=== PATIENT | female | born 1945 | race Caucasian/White ===

== ENCOUNTER 2021-03-25 20:35 | Inpatient (IN) | payer MEDICARE, SELFPAY ==
--- NOTE | ~2021-03-25 | CT_ITS ---
EXAMINATION: CT HEAD WITHOUT CONTRAST CLINICAL INFORMATION: Fall. COMPARISON: None TECHNIQUE: Contiguous axial imaging was performed from the skull base to vertex without intravenous administration of contrast. This CT examination was performed using dose optimization techniques as appropriate, variously including the following: *Automated exposure control *Adjustment of mA and/or kV according to patient size (this includes techniques or standardized protocols for targeted exams where dose is matched to indication/reason for exam; i.e. extremities or head) *Use of iterative reconstruction technique DLP: 766 mGy-cm FINDINGS: There is no evidence of acute intracranial hemorrhage or territorial infarction. No abnormal mass effect or midline shift is seen. Reilly to white matter differentiation is well preserved. No extra-axial fluid collections are identified. The ventricles are normal in size. There is no abnormal attenuation within the brain parenchyma. The osseous structures and soft tissues are normal. The mastoid air cells and visualized portions of the paranasal sinuses are well aerated. CT/CT head/brain wo con IMPRESSION: Unremarkable exam.
[2021-03-25 20:30] VITALS: BP 167/81; PULSE 94; RESP 16; TEMP 36.9; O2SAT 96
--- NOTE | 2021-03-25 21:32 | P.HPPS_ITS ---
HPI Date of Service: 03/25/21 Chief Complaint: generalized anxiety disorder Sources of Information: patient interviewed, chart reviewed and crisis/core team assessment reviewed HPI Subjective Notes: Lino Warning and Conditional Voluntary Healthcare Proxy: No Guardianship: No Medical Problems Affecting Mental Status: No Narrative: Jessie is a 76 y.o. Female with who initially presented to [facility] on 03/20/21 due to concerns of dehydration. Pt was found to be hyponatremic and this was attributed to volume depletion, HCTZ, fluoxetine, and SIADH. Pt had recently started ativan 0.5 mg QD PRN and prozac in 01/2021. While at [facility], she was continued on losartan, HCTZ and prozac were discontinued, and amlodipine was added. Her Na has normalized following a 2L fluid restriction and initiation of urea by nephrology. Psych consult was placed on 03/22/21 due to pt reporting passive SI with vague plans to harm herself if discharged and becoming increasingly paranoid and perseverative on her fluid restriction. Pt was started on riseprdal 0.25 mg QHS. She was also started on remeron 7.5 mg QHS on 03/20/21 for insomnia. Lastly, pt was started on thiamine, folic acid, and multivitamin due to hx of daily alcohol use. Per chart, pt had head CT and chest xray, which were both negative. I evaluated the pt this evening and upon interview she appears agitated and suspicious, saying ?the more frequently you change drugs, the more confusing it can be.? Pt continues to perseverate on her diagnosis of low sodium and fluid restriction, stating ?by taking all of these medications it uses some of my water allocation for the day.? She asks to go over her medication changes in great detail, as she feels changes were implemented without her input, and says she is ?worried about a variety of reactions? and does not like that they make her feel ?sleepy, i?d rather be alert.? Says her sleep is poor but attributes this to being ?in a strange new environment.? Energy is low. She does admit to new onset of confusion and says she can be forgetful with dates. She currently denies SI and says for suicidal thoughts, ?I think everybody has a few of them from time to time,? however states ?I dont think i would really ever do it.? She denies plans or intent for suicide. Denies history of self harm. She currently denies paranoia, as she prefers to portray herself as ?a very cautious person? and she can be hypervigilant in new environments or at night. States at [facility], she did not like have a 1:1 and felt there was ?always somebody listening. I find it quite intrusive.? Currently denies feeling anxious or depressed. Pt remains perseverative on an avulsion fracture in her L foot, which occurred last May when she ?twisted it? while walking. Says her injury ?got better and then it got worse,? saw an orthopedist and she is thinking about doing surgery. She is focused on her pain and ?weakness,? says she is hoping not to have to walk or stand on it for long periods of time. Feels her foot injury has caused her to ?get a little down,? as she can no longer walk and is intentionally restricting her diet as her activity level has decreased. She denies A/VH. Denies hx of manic or hypomanic sx. Says she feels safe on the unit.? Past Psychiatric History: -Denies hx of IPLOC, PHP, or CCS. Medical Evaluation Reviewed: Hospitalist Georgiana Pending [facility] Narrative: -Labs from 03/20/21: CBC wnl, CMP wnl except BUN H 30, magnesium wnl? Social History: -Pt resides with her . 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 Has one step-daughter and grandchildren. Substance History: -ETOH: pt reports she used to drink daily 1-2 drinks per day, sober 3-4 months. Meds/Allergies Meds Home Medications Acetaminophen (Acetaminophen 325 Mg Tablet) 650 mg PO Q6H PRN PRN Reason: Headache/Pain Mild Scale (1-3) Al Hydroxide/Mg Hydroxide (Magnesium Hydrox/Alum Hydrox 30 Ml Oral.Susp) 30 ml PO Q6H PRN PRN Reason: Heartburn/Nausea Amlodipine Besylate (Amlodipine Besylate 2.5 Mg Tablet) 2.5 mg PO DAILY [facility]; Protocol Hydroxyzine HCl (Hydroxyzine Hcl 25 Mg Tablet) 25 mg PO BEDTIME PRN PRN Reason: Anxiety Lorazepam (Lorazepam 0.5 Mg Tablet) 0.5 mg PO Q6H PRN PRN Reason: anxiety Losartan Potassium (Losartan Potassium 50 Mg Tablet) 50 mg PO DAILY [facility]; Protocol Magnesium Hydroxide (Milk Of Magnesia 30 Ml Oral.Susp) 30 ml PO DAILY PRN PRN Reason: Constipation Mirtazapine (Mirtazapine 15 Mg Tablet) 15 mg PO BEDTIME [facility] Last Admin: 03/25/21 22:48 Dose: 15 mg Documented by: Risperidone (Risperidone 0.25 Mg Tablet) 0.25 mg PO BEDTIME [facility] Last Admin: 03/25/21 22:48 Dose: 0.25 mg Documented by: Trazodone HCl (Trazodone Hcl 50 Mg Tablet) 50 mg PO BEDTIME PRN PRN Reason: Insomnia Vitamin D (Cholecalciferol (Vitamin D3) 25 Mcg Tablet) 25 mcg PO DAILY [facility] Allergies Allergies Allergy/AdvReac Type Severity Reaction Status Date / Time No Known Allergies Allergy Verified 03/25/21 20:37 Mental Status Exam Mental Status Exam Narrative: A&O. Pt in casual attire, sitting up, normal body habitus. Poor eye contact, mostly attentive. No Tics or Tremors. No abnormal involuntary movements. Agitated, suspicious, difficult to engage. Non-pressured speech, spontaneous with regular rate and rhythm, normal volume and prosody. No prolonged speech latency or dysarthria. Mood is [did not state], affect is c onstricted. Denies SI/SIB/HI upon inquiry. Denies A/VH or delusional thought content. Thoughts are evasive, continues to appear paranoid. No known cognitive or memory impairment. Insight/ Judgment limited but adequate. Assessment & Plan Assessment & Plan (1) MDD (major depressive disorder), recurrent episode, moderate: Status: Acute Code(s): F33.1 - Major depressive disorder, recurrent, moderate (2) Insomnia: Status: Acute Code(s): G47.00 - Insomnia, unspecified (3) Acute delirium: Status: Acute Code(s): R41.0 - Disorientation, unspecified Assessment and Plan: Jessie is a 76 y.o. Female with who initially presented to [facility] on 03/20/21 due to concerns of dehydration. Pt was found to be hyponatremic and this was attributed to volume depletion, HCTZ, fluoxetine, and SIADH. Pt had recently started ativan 0.5 mg QD PRN and prozac in 01/2021 by her PCP, Analilia Canales. Pt denies past psych history. She appears high functioning, however from her timeline it appears she has been struggling with anxiety, poor sleep, and depression since injuring her foot last May. She was started on riserpdal at [facility] to target sx of paranoia, perseverative thoughts, and agitation in context of probably delirium. Pt does report feeling confusion and continues to report poor sleep. Plan: will continue risperdal 0.25 mg QHS to target disorganized thoughts, paranoia. Will continue remeron 7.5 mg QHS to target poor sleep, anxiety, and depression. Monitor response to medications. Monitor for safety in the milieu. Discharge on stabilization. Patient seen. Chart reviewed. Discussed with team. Obtain collateral contact info?as needed Reason for continued inpatient stay Substantial Risk for: inability to function, rapid decompensation and med/psych decompensation
[2021-03-25] MEDS: Mirtazapine 15 MG TABLET PO (22:48)
[2021-03-25] MEDS: risperiDONE 0.25 MG TABLET PO (22:48)
[2021-03-25 23:05] VITALS: BMI 19.8
[2021-03-26 00:07] LABS: Appearance Urine HAZY; Color Urine YELLOW; Glucose Urine UA NEG (NEG); Leukocyte Esterase Urine NEG (NEG); Nitrite Urine NEG (NEG); Specific Gravity - Urine >= 1.030 (1.005-1.025); Urine Blood TRACE (NEG); Urine Ketones 15 MG/DL (NEG); Urine Protein TRACE MG/DL (NEG-TRACE)
[2021-03-26 00:14] LABS: Amorphous Sediment Urine 2+ /LPF; RBC Urine 0-2 /HPF (0); Squamous Epithelial Cell Urine 2+ /LPF
--- NOTE | 2021-03-26 01:29 | PC.ADMIT ---
pt is a transfer from [facility] with dx of anxiety/depression suicide ideation. pt has difficulty focusing and moving forward with intake interview. an example is her overt focus on paperwork and subsequent hesitancy in signing paperwork. much of the interview information was taken from her hoang over the phone. 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 according to her pts difficulties began this past may after she injured her left ankle. prior to this injury, pt was quite active walking 2 miles/day and taking yoga lessons. unfortunately the ankle injury impeded her active life style. over the month of January, pt became obsessed with medical insurance and episodes of confusion were noted. despite having quite good medical insurance, pt continued to ruminate over orthopedic bills. during this time period, she sought mental health expertise and was started on antidepressant tx.(prozac). on 03-23-21 pt presented to the hospital emergency room c/o of dehydration and confusion. pt has found to be hyponatremic. she was given 2000 ml of normal saline iv with her Na+ correcting to 138. her bun was elevated at 30 and creatinine was normal. the hyponatremia was thought to be multi factorial r/t hctz/possibly prozac as well as decreased fluid intake. while in the hospital, pt verbalized to staff that she had suicide ideation. hoang states that she had some dark thoughts and told the staff the next thing I knew she had a national guard solider at her bedside. pt is pleasant/she is very apprehensive and suspicious. in addition she is anxious and worried. she states that she is worried about her insurance. she has numerous pieces of paper which she scribbles information down on. she is able to state the month correctly and that she is at [facility]. she is unsure of the day. she denies si and hi. according to [facility] paperwork, she drinks etoh daily. pt denies etoh and states the last time she had any alcohol was on . pt has c/o of weakness and pain in her left foot. as mentioned she has an on going issue with mobility r/t to left ankle. she ambulates with a cane. her gait is steady. she has some mild generalized edema of her lower legs. resp effort is regular and unlabored. covid tests negative. sbp in the 160s mmhg. hctz d/c and receiving norvasc daily started. abdomen benign. to mention that pt has had on going issue with anorexia and decreased fluid intake. she voided 200 ml of conc jose cruz urine. urine specimen obtained and sent.
[2021-03-26 08:00] VITALS: BP 142/64; PULSE 84; RESP 18; TEMP 36.4; O2SAT 99
[2021-03-26 08:07] LABS: Cholesterol 196 mg/dL; HDL Cholesterol 67 mg/dL; LDL Cholesterol Calculated 115 mg/dl; Triglycerides 71 mg/dL
[2021-03-26 08:30] LABS: Free T4 (Free Thyroxine) 1.29 ng/dL (0.71-1.85); Thyroid Stimulating Hormone 0.72 uIU/mL (0.32-4.0)
[2021-03-26 08:47] LABS: Estimated Average Glucose 100 mg/dL; Hemoglobin A1c % 5.1 %
[2021-03-26 09:04] LABS: Folate 19.6 ng/mL (> or = 4.0); Vitamin B12 590 pg/mL (200-900)
[2021-03-26] MEDS: Cholecalciferol (Vitamin D3) 25 MCG TABLET PO (09:17)
[2021-03-26] MEDS: Losartan Potassium 50 MG TABLET PO (09:17)
[2021-03-26] MEDS: amLODIPine Besylate 2.5 MG TABLET PO (09:17)
--- NOTE | 2021-03-26 11:56 | PM.IMCN ---
History of Present Illness Data of Consult Service Date: 03/26/21 Primary Care Provider: Analilia Canales MD HPI Reason for consult: Routine Medical (transferred from outside hospital) This is a 76 yo F with a PMH of HTN (On losartan + hctz previously) who is admitted to the [facility] after treatment for hyopnatremia at [facility]. Medical consult requested as part of procotol after transfer from outside hospital. Patient is seen and examined in her room. She complaints of L ankle pain after she sprained it in May 2020. She reports that she has since had trouble weight bearing on it and uses a cane. She reports she has been evaluated by 2 orthopedist. It is unclear to me if surgery has been recommended. She also reports concerns over her sodium / blood pressure issues. Review on admission psych H&P reveals that these concerns / complaints are consistent with the same issues at [facility]. PMH HTN Skin Ca (she think it was Basal Cell Ca) PSH Mohs surgery for basal cell Ca of Nose SH Denies tobacco or illicit substance abuse; Repots no EtOH intake in 3-4 months Review of Systems Review of Systems: negative except HPI PMFSH Social History Household Members: Spouse Household Members Other:: hoang Housing: House Do you presently have visiting nurse or other home services: No Patient Tobacco Use Status: Never used Tobacco Use of substances other than those prescribed or required for medical reasons: No Currently Displaying Signs/Symptoms of Drug Intoxication Withdrawal: No Any prior treatment program specific to substance use: No Have you been hit, kicked, punched, or otherwise hurt by someone within the past year? If so, by whom?: No Do you feel safe in your current relationship?: No Is there a partner from a previous relationship who is making you feel unsafe now?: No Are you made to feel afraid or neglected: No Advance Directives: No Advance Directives Information Provided: Yes Advance Directives on File: No Do you have thoughts of harming others: None Do you have a plan to hurt others: No Plan Recently lost weight without trying: No Eating poorly because of decreased appetite: Yes Nutrition Risks: Anorexia Patient : No : No Poor oral hygiene: No Meds Allergies Allergy/AdvReac Type Severity Reaction Status Date / Time pneumococcal vaccine Allergy Redness of Verified 03/26/21 04:50 Skin Active Medications: Current Medications Acetaminophen (Acetaminophen 325 Mg Tablet) 650 mg PO Q6H PRN PRN Reason: Headache/Pain Mild Scale (1-3) Al Hydroxide/Mg Hydroxide (Magnesium Hydrox/Alum Hydrox 30 Ml Oral.Susp) 30 ml PO Q6H PRN PRN Reason: Heartburn/Nausea Amlodipine Besylate (Amlodipine Besylate 2.5 Mg Tablet) 2.5 mg PO DAILY [facility]; Protocol Last Admin: 03/26/21 09:17 Dose: 2.5 mg Documented by: Hydroxyzine HCl (Hydroxyzine Hcl 25 Mg Tablet) 25 mg PO BEDTIME PRN PRN Reason: Anxiety Lorazepam (Lorazepam 0.5 Mg Tablet) 0.5 mg PO Q6H PRN PRN Reason: anxiety Losartan Potassium (Losartan Potassium 50 Mg Tablet) 50 mg PO DAILY [facility]; Protocol Last Admin: 03/26/21 09:17 Dose: 50 mg Documented by: Magnesium Hydroxide (Milk Of Magnesia 30 Ml Oral.Susp) 30 ml PO DAILY PRN PRN Reason: Constipation Mirtazapine (Mirtazapine 15 Mg Tablet) 15 mg PO BEDTIME [facility] Last Admin: 03/25/21 22:48 Dose: 15 mg Documented by: Risperidone (Risperidone 0.25 Mg Tablet) 0.25 mg PO BEDTIME [facility] Last Admin: 03/25/21 22:48 Dose: 0.25 mg Documented by: Trazodone HCl (Trazodone Hcl 50 Mg Tablet) 50 mg PO BEDTIME PRN PRN Reason: Insomnia Vitamin D (Cholecalciferol (Vitamin D3) 25 Mcg Tablet) 25 mcg PO DAILY [facility] Last Admin: 03/26/21 09:17 Dose: 25 mcg Documented by: Home Medications Medication Instructions Recorded Confirmed Last Taken Type cyclosporine 0.05 % eye drops in a 1 drp OPHTHALMIC (EYE) Q12H 03/25/21 Unknown History dropperette (Restasis) duloxetine 30 mg capsule,delayed 30 mg PO DAILY 03/25/21 Unknown History release sprinkle estradiol 0.5 g VAGINAL 2XW 03/25/21 Unknown History fluoxetine 20 mg capsule 20 mg PO DAILY 03/25/21 Unknown History hydrochlorothiazide 25 mg tablet 25 mg PO DAILY 03/25/21 Unknown History lorazepam 0.5 mg tablet 0.5 mg PO BID PRN 03/25/21 Unknown History losartan 50 mg tablet 50 mg PO DAILY 03/25/21 Unknown History Physical Exam Vital Signs and Narrative: Vital Signs: Last Vital Signs Temp 97.6 F 03/26/21 08:00 Pulse 84 03/26/21 08:00 Resp 18 03/26/21 08:00 BP 142/64 H 03/26/21 08:00 Pulse Ox 99 03/26/21 08:00 BMI result Body Mass Index 19.8 Const: Other: Constitutional - Awake and Alert, No apparent distress Eyes - PERRLA, EOMI Cardiovascular - S1S2, RRR, No edema Respiratory - Normal lung expansion, Normal respiratory effort, No respiratory distress, CTA bilaterally Gastrointestinal - NT / ND; +BS; No rebound or guarding - No CVA tenderness Extremities - no calf tenderness bilaterally, no swelling Musculoskeletal - L ankle -- no body tenderness, ROM at ankle join wnl and full Skin - Warm/Dry Neurological - Alert & oriented x3, No focal deficit; CN 2-12 in tact b/l Psychological - Appropriate affect Results Labs Labs: Laboratory Results - last 24 hr 03/25/21 03/26/21 03/26/21 23:50 07:16 07:16 Estimat Average Glucose 100 Hemoglobin A1c % 5.1 Triglycerides 71 Cholesterol 196 LDL Cholesterol, Calc 115 HDL Cholesterol 67 Vitamin B12 Folate TSH 0.72 Free T4 1.29 Urine Color YELLOW Urine Appearance HAZY Urine pH 6.0 Ur Specific [place] >= 1.030 H Urine Protein TRACE Urine Glucose (UA) NEG Urine Ketones 15 Urine Blood TRACE Urine Nitrite NEG Ur Leukocyte Esterase NEG Urine RBC 0-2 Urine WBC 1-4 Ur Squamous Epith Cells 2+ Amorphous Sediment 2+ Urine Bacteria NONE 03/26/21 07:16 Estimat Average Glucose Hemoglobin A1c % Triglycerides Cholesterol LDL Cholesterol, Calc HDL Cholesterol Vitamin B12 590 Folate 19.6 TSH Free T4 Urine Color Urine Appearance Urine pH Ur Specific [place] Urine Protein Urine Glucose (UA) Urine Ketones Urine Blood Urine Nitrite Ur Leukocyte Esterase Urine RBC Urine WBC Ur Squamous Epith Cells Amorphous Sediment Urine Bacteria Assessment and Plan (1) Benign essential HTN: Status: Acute This is a 76 yo F with a PMH of HTN who was admitted to [facility] for hypoNa which was felt to be multifactorial. [facility] her [facility] condition. Medical consult requested for routine medical H&P as part of protocol for transfer from outside hospital. 1. HTN continue losartan; HCTZ has been discontinued after d/c from [facility] 2. L ankle pain chronic, no acute issues outpatient f/u 3. Recent Hyponatremia [facility] records indicate sodium levels normal on 03/25. Urea as used there, but discontinued on 03/23; 2L fluid restriction at [facility] initially but discontined on 03/03 due to patient perseverating on her fluid / food intake. Medically stable. Will sign off. Reconsult if any issues arise. Thank you.
--- NOTE | 2021-03-26 17:10 | HO.PSYCHPN ---
Subjective Subjective Date of Service: 03/26/21 Reason For Visit: generalized anxiety disorder Subjective Notes: Conditional Voluntary Interim History: The nursing staff reported the patient was admitted yesterday at 20:50 from [facility] due to anxiety and depression and suicidal ideation. According to the patient's note, the patient was fixated on medical bills and insurance coverage. 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 On interview, the patient was a little confused but pleasant and cooperative. I contact her Jason at [phone] and discuss her case. We will review blood work tomorrow morning Mental Status Exam Mental Status Exam Patient Appearance: Well Grooomed Patient Orientation: Person Level of Consciousness: Awake Patient Behavior: Cooperative Mood Description: Depressed Affect Description: Constricted Ability to Follow Directions: Good Speech Pattern: Clear Memory Description: Intact Hallucinations: None Delusions: Not Present Thought Process: Linear Thought Content: positive for Circumstantial Judgement: Fair Diagnostics Vital Signs (24Hr): Vital Signs - 24 hr 03/25/21 20:30 03/26/21 08:00 Temperature 98.4 F 97.6 F Pulse Rate 94 84 Respiratory Rate 16 18 Blood Pressure 167/81 H 142/64 H Pulse Oximetry 96 99 BMI result Body Mass Index 19.8 Labs Labs: Laboratory Results - last 48 hr 03/25/21 03/26/21 03/26/21 23:50 07:16 07:16 Estimat Average Glucose 100 Hemoglobin A1c % 5.1 Triglycerides 71 Cholesterol 196 LDL Cholesterol, Calc 115 HDL Cholesterol 67 Vitamin B12 Folate TSH 0.72 Free T4 1.29 Urine Color YELLOW Urine Appearance HAZY Urine pH 6.0 Ur Specific [place] >= 1.030 H Urine Protein TRACE Urine Glucose (UA) NEG Urine Ketones 15 Urine Blood TRACE Urine Nitrite NEG Ur Leukocyte Esterase NEG Urine RBC 0-2 Urine WBC 1-4 Ur Squamous Epith Cells 2+ Amorphous Sediment 2+ Urine Bacteria NONE 03/26/21 07:16 Estimat Average Glucose Hemoglobin A1c % Triglycerides Cholesterol LDL Cholesterol, Calc HDL Cholesterol Vitamin B12 590 Folate 19.6 TSH Free T4 Urine Color Urine Appearance Urine pH Ur Specific [place] Urine Protein Urine Glucose (UA) Urine Ketones Urine Blood Urine Nitrite Ur Leukocyte Esterase Urine RBC Urine WBC Ur Squamous Epith Cells Amorphous Sediment Urine Bacteria Medications Medications Current Medications Acetaminophen (Acetaminophen 325 Mg Tablet) 650 mg PO Q6H PRN PRN Reason: Headache/Pain Mild Scale (1-3) Al Hydroxide/Mg Hydroxide (Magnesium Hydrox/Alum Hydrox 30 Ml Oral.Susp) 30 ml PO Q6H PRN PRN Reason: Heartburn/Nausea Amlodipine Besylate (Amlodipine Besylate 2.5 Mg Tablet) 2.5 mg PO DAILY [facility]; Protocol Last Admin: 03/26/21 09:17 Dose: 2.5 mg Documented by: Hydroxyzine HCl (Hydroxyzine Hcl 25 Mg Tablet) 25 mg PO BEDTIME PRN PRN Reason: Anxiety Lorazepam (Lorazepam 0.5 Mg Tablet) 0.5 mg PO Q6H PRN PRN Reason: anxiety Losartan Potassium (Losartan Potassium 50 Mg Tablet) 50 mg PO DAILY [facility]; Protocol Last Admin: 03/26/21 09:17 Dose: 50 mg Documented by: Magnesium Hydroxide (Milk Of Magnesia 30 Ml Oral.Susp) 30 ml PO DAILY PRN PRN Reason: Constipation Mirtazapine (Mirtazapine 15 Mg Tablet) 15 mg PO BEDTIME [facility] Last Admin: 03/25/21 22:48 Dose: 15 mg Documented by: Risperidone (Risperidone 0.25 Mg Tablet) 0.25 mg PO BEDTIME [facility] Last Admin: 03/25/21 22:48 Dose: 0.25 mg Documented by: Trazodone HCl (Trazodone Hcl 50 Mg Tablet) 50 mg PO BEDTIME PRN PRN Reason: Insomnia Vitamin D (Cholecalciferol (Vitamin D3) 25 Mcg Tablet) 25 mcg PO DAILY [facility] Last Admin: 03/26/21 09:17 Dose: 25 mcg Documented by: Allergies Allergies Allergy/AdvReac Type Severity Reaction Status Date / Time pneumococcal vaccine Allergy Redness of Verified 03/26/21 04:50 Skin Assessment & Plan Assessment & Plan (1) Benign essential HTN: Status: Acute Code(s): I10 - Essential (primary) hypertension Assessment and Plan: This is a 76 yo F with a PMH of HTN who was admitted to [facility] for hypoNa which was felt to be multifactorial. She was subsequently transferred to [facility] for management of her psychiatric condition. Medical consult requested for routine medical H&P as part of protocol for transfer from outside hospital. Plan: keep same treatment bmp and other labs tomorrow am I spent minutes with the patient and/or on the patient floor today, greater than?50% of which was spent counseling/coordinating care. Reason for contiued inpatient stay Substantial Risk for: harm to self, inability to function, rapid decompensation and med/psych decompensation
[2021-03-26 19:30] VITALS: BP 138/67; PULSE 78; RESP 17; TEMP 36.6; O2SAT 98
[2021-03-27 06:00] VITALS: BP 149/77; PULSE 91; RESP 18; TEMP 37.1; O2SAT 96
[2021-03-27 08:30] LABS: MANUAL DIFF FLAG NO
[2021-03-27 08:37] LABS: Basophils Percent Auto 0.6 % (0-2); Eosinophils Absolute Auto 0.1 X10*3/uL (0.0-0.4); Eosinophils Percent Auto 0.9 % (0-4); Hematocrit 41.4 % (37.0-47.0); Hemoglobin 13.8 g/dl (12.0-16.0); Imm Gran Abs Auto 0.03 X10*3/uL (0.00-0.03); Imm Gran Pct Auto 0.6 % (0.0-0.4); Lymphocytes Absolute Auto 0.8 X10*3/uL (1.2-4.9); Mean Corpuscular HGB Conc 33.3 g/dl (31.0-35.0); Mean Corpuscular Hemoglobin 32.1 pg (27.0-33.0); Mean Corpuscular Volume 96.3 fL (80.0-98.0); Mean Platelet Volume 10.5 fL (9.4-12.3); Monocytes Absolute Auto 0.3 X10*3/uL (0.1-1.2); Monocytes Percent Auto 5.5 % (2-11); Neutrophils Absolute Auto 4.2 x10*3/uL (2.0-8.3); Neutrophils Percent Auto 77.4 % (45-73); Platelet Count 327 X10*3/uL (160-400); Red Cell Distribution Width 12.3 % (11.0-16.0); White Blood Count 5.4 X10*3/uL (4.8-10.8)
[2021-03-27 08:59] LABS: Anion Gap 14 (12-20); Blood Urea Nitrogen 37 mg/dL (9-16); Calcium 10.2 mg/dL (8.4-10.2); Carbon Dioxide 25 mmol/L (22-29); Chloride 103 mmol/L (96-108); Estimated Glomerular Filt Rate > 60; Glucose Random 105 mg/dL (60-115); Potassium 4.2 mmol/L (3.3-5.1); Sodium 138 mmol/L (135-145)
[2021-03-27] MEDS: amLODIPine Besylate 2.5 MG TABLET PO (08:59)
[2021-03-27] MEDS: Losartan Potassium 50 MG TABLET PO (08:59)
[2021-03-27] MEDS: Cholecalciferol (Vitamin D3) 25 MCG TABLET PO (08:59)
[2021-03-27] MEDS: LORazepam 0.5 MG TABLET PO (10:16)
--- NOTE | 2021-03-27 15:34 | P.PNPSI_ITS ---
Subjective Subjective Date of Service: 03/27/21 Reason For Visit: generalized anxiety disorder Subjective Notes: Conditional Voluntary Interim History: The nursing staff reported that last night she did receive her medications, an incident report was done. Her blood work was done and her only abnormal value was the BUN that is slightly high but her creatinine is 0.9. On interview the patient is pleasant and cooperative, and in anxious but easily redirectable. The social human services assistants will arrange a family meeting pretty soon with her that I had a long conversation yesterday. Mental Status Exam Mental Status Exam Patient Appearance: Well Grooomed Patient Orientation: Person Level of Consciousness: Awake Patient Behavior: Cooperative Mood Description: Depressed Affect Description: Constricted Patient Cognition Impaired: No Ability to Follow Directions: Good Speech Pattern: Clear Memory Description: Intact Hallucinations: None Delusions: Not Present Thought Process: Linear Thought Content: positive for Circumstantial Judgement: Fair Diagnostics Vital Signs (24Hr): Vital Signs - 24 hr 03/26/21 19:30 03/27/21 06:00 Temperature 98 F 98.7 F Pulse Rate 78 91 Respiratory Rate 17 18 Blood Pressure 138/67 149/77 H Pulse Oximetry 98 96 BMI result Verdana 4 Body Mass Index Verdana 4 19.8 Verdana 4 Verdana 4 Labs Results: 03/27/21 08:22 03/27/21 08:22 Labs: Laboratory Results - last 48 hr 03/25/21 03/26/21 03/26/21 23:50 07:16 07:16 WBC RBC Hgb Hct MCV MCH MCHC RDW Plt Count MPV Immature Gran % (Auto) Neut % (Auto) Lymph % (Auto) [place] % (Auto) Eos % (Auto) Baso % (Auto) Lymph # (Auto) [place] # (Auto) Eos # (Auto) Baso # (Auto) Abs Immat Gran (auto) Absolute Neuts (auto) Absolute Nucleated RBC Nucleated RBC % (auto) Sodium Potassium Chloride Carbon Dioxide Anion Gap BUN Creatinine Estim Creat Clear Calc Estimated GFR Random Glucose Estimat Average Glucose 100 Hemoglobin A1c % 5.1 Calcium Triglycerides 71 Cholesterol 196 LDL Cholesterol, Calc 115 HDL Cholesterol 67 Vitamin B12 Folate TSH 0.72 Free T4 1.29 Urine Color YELLOW Urine Appearance HAZY Urine pH 6.0 Ur Specific [place] >= 1.030 H Urine Protein TRACE Urine Glucose (UA) NEG Urine Ketones 15 Urine Blood TRACE Urine Nitrite NEG Ur Leukocyte Esterase NEG Urine RBC 0-2 Urine WBC 1-4 Ur Squamous Epith Cells 2+ Amorphous Sediment 2+ Urine Bacteria NONE 03/26/21 03/27/21 03/27/21 07:16 08:22 08:22 WBC 5.4 RBC 4.30 Hgb 13.8 Hct 41.4 MCV 96.3 MCH 32.1 MCHC 33.3 RDW 12.3 Plt Count 327 MPV 10.5 Immature Gran % (Auto) 0.6 H Neut % (Auto) 77.4 H Lymph % (Auto) 15.0 L [place] % (Auto) 5.5 Eos % (Auto) 0.9 Baso % (Auto) 0.6 Lymph # (Auto) 0.8 L [place] # (Auto) 0.3 Eos # (Auto) 0.1 Baso # (Auto) 0.0 Abs Immat Gran (auto) 0.03 Absolute Neuts (auto) 4.2 Absolute Nucleated RBC 0.000 Nucleated RBC % (auto) 0.0 Sodium 138 Potassium 4.2 Chloride 103 Carbon Dioxide 25 Anion Gap 14 BUN 37 H Creatinine 0.91 Estim Creat Clear Calc 50.0 Estimated GFR > 60 Random Glucose 105 Estimat Average Glucose Hemoglobin A1c % Calcium 10.2 Triglycerides Cholesterol LDL Cholesterol, Calc HDL Cholesterol Vitamin B12 590 Folate 19.6 TSH Free T4 Urine Color Urine Appearance Urine pH Ur Specific [place] Urine Protein Urine Glucose (UA) Urine Ketones Urine Blood Urine Nitrite Ur Leukocyte Esterase Urine RBC Urine WBC Ur Squamous Epith Cells Amorphous Sediment Urine Bacteria Medications Medications Current Medications Acetaminophen (Acetaminophen 325 Mg Tablet) 650 mg PO Q6H PRN PRN Reason: Headache/Pain Mild Scale (1-3) Al Hydroxide/Mg Hydroxide (Magnesium Hydrox/Alum Hydrox 30 Ml Oral.Susp) 30 ml PO Q6H PRN PRN Reason: Heartburn/Nausea Amlodipine Besylate (Amlodipine Besylate 2.5 Mg Tablet) 2.5 mg PO DAILY [facility]; Protocol Last Admin: 03/27/21 08:59 Dose: 2.5 mg Documented by: Hydroxyzine HCl (Hydroxyzine Hcl 25 Mg Tablet) 25 mg PO BEDTIME PRN PRN Reason: Anxiety Lorazepam (Lorazepam 0.5 Mg Tablet) 0.5 mg PO Q6H PRN PRN Reason: anxiety Last Admin: 03/27/21 10:16 Dose: 0.5 mg Documented by: Losartan Potassium (Losartan Potassium 50 Mg Tablet) 50 mg PO DAILY [facility]; Protocol Last Admin: 03/27/21 08:59 Dose: 50 mg Documented by: Magnesium Hydroxide (Milk Of Magnesia 30 Ml Oral.Susp) 30 ml PO DAILY PRN PRN Reason: Constipation Mirtazapine (Mirtazapine 15 Mg Tablet) 15 mg PO BEDTIME [facility] Last Admin: 03/25/21 22:48 Dose: 15 mg Documented by: Risperidone (Risperidone 0.25 Mg Tablet) 0.25 mg PO BEDTIME [facility] Last Admin: 03/25/21 22:48 Dose: 0.25 mg Documented by: Trazodone HCl (Trazodone Hcl 50 Mg Tablet) 50 mg PO BEDTIME PRN PRN Reason: Insomnia Vitamin D (Cholecalciferol (Vitamin D3) 25 Mcg Tablet) 25 mcg PO DAILY [facility] Last Admin: 03/27/21 08:59 Dose: 25 mcg Documented by: Allergies Allergies Allergy/AdvReac Type Severity Reaction Status Date / Time pneumococcal vaccine Allergy Redness of Verified 03/26/21 04:50 Skin Assessment & Plan Assessment & Plan (1) Benign essential HTN: Status: Acute Code(s): I10 - Essential (primary) hypertension Plan This is a 76 yo F with a PMH of HTN who was admitted to [facility] for hypoNa which was felt to be multifactorial. She was subsequently transferred to [facility] for management of her psychiatric condition. Medical consult requested for routine medical H&P as part of protocol for transfer from outside hospital. Plan: keep same treatment Family meeting as soon as possible bmp and other labs tomorrow am I spent minutes with the patient and/or on the patient floor today, greater than?50% of which was spent counseling/coordinating care. Reason for contiued inpatient stay Substantial Risk for: inability to function, rapid decompensation and med/psych decompensation
[2021-03-27 18:00] VITALS: BP 146/71; PULSE 96; RESP 17; TEMP 36.7; O2SAT 96
[2021-03-27 20:00] VITALS: BP 146/71; PULSE 96; RESP 17; TEMP 36.7; O2SAT 96
[2021-03-27] MEDS: risperiDONE 0.25 MG TABLET PO (22:01)
[2021-03-27] MEDS: Mirtazapine 15 MG TABLET PO (22:02)
[2021-03-28 06:00] VITALS: BP 163/74; PULSE 95; RESP 16; TEMP 36.2; O2SAT 98
--- NOTE | 2021-03-28 14:39 | P.PNPSI_ITS ---
Subjective Subjective Date of Service: 03/28/21 Reason For Visit: generalized anxiety disorder Subjective Notes: Conditional Voluntary Interim History: The nursing staff rpeorted that she was paranoid and suspicious on the evening, stated that she was scared that she will get by somenone . Today, we have a family meeting with her . She was worried and paranoid about insurance coverage and financial problems but her assured her that they are doing just fine. No side effects, still paranoid, slightly confused at times. Mental Status Exam Mental Status Exam Patient Appearance: Well Grooomed Patient Orientation: Person Level of Consciousness: Awake Patient Behavior: Cooperative Mood Description: Depressed Affect Description: Constricted Patient Cognition Impaired: No Ability to Follow Directions: Good Speech Pattern: Appropriate Memory Description: Intact Hallucinations: None Delusions: Paranoid Ideation Thought Process: Distracted and Evasive Thought Content: positive for Circumstantial, positive for Poverty of Content and positive for Thought Blocking Judgement: Fair Diagnostics Vital Signs (24Hr): Vital Signs - 24 hr 03/27/21 18:00 03/27/21 20:00 03/28/21 06:00 Temperature 98.1 F 98.1 F 97.2 F Pulse Rate 96 96 95 Respiratory Rate 17 17 16 Blood Pressure 146/71 H 146/71 H 163/74 H Pulse Oximetry 96 96 98 BMI result Verdana 4 Body Mass Index Ver[place] 4 19.8 Verdana 4 Verdana 4 Labs Results: 03/27/21 08:22 03/27/21 08:22 Labs: Laboratory Results - last 48 hr 03/27/21 03/27/21 08:22 08:22 WBC 5.4 RBC 4.30 Hgb 13.8 Hct 41.4 MCV 96.3 MCH 32.1 MCHC 33.3 RDW 12.3 Plt Count 327 MPV 10.5 Immature Gran % (Auto) 0.6 H Neut % (Auto) 77.4 H Lymph % (Auto) 15.0 L [place] % (Auto) 5.5 Eos % (Auto) 0.9 Baso % (Auto) 0.6 Lymph # (Auto) 0.8 L [place] # (Auto) 0.3 Eos # (Auto) 0.1 Baso # (Auto) 0.0 Abs Immat Gran (auto) 0.03 Absolute Neuts (auto) 4.2 Absolute Nucleated RBC 0.000 Nucleated RBC % (auto) 0.0 Sodium 138 Potassium 4.2 Chloride 103 Carbon Dioxide 25 Anion Gap 14 BUN 37 H Creatinine 0.91 Estim Creat Clear Calc 50.0 Estimated GFR > 60 Random Glucose 105 Calcium 10.2 Medications Medications Current Medications Acetaminophen (Acetaminophen 325 Mg Tablet) 650 mg PO Q6H PRN PRN Reason: Headache/Pain Mild Scale (1-3) Al Hydroxide/Mg Hydroxide (Magnesium Hydrox/Alum Hydrox 30 Ml Oral.Susp) 30 ml PO Q6H PRN PRN Reason: Heartburn/Nausea Amlodipine Besylate (Amlodipine Besylate 2.5 Mg Tablet) 2.5 mg PO DAILY [facility]; Protocol Last Admin: 03/28/21 10:42 Dose: Not Given Documented by: Hydroxyzine HCl (Hydroxyzine Hcl 25 Mg Tablet) 25 mg PO BEDTIME PRN PRN Reason: Anxiety Lorazepam (Lorazepam 0.5 Mg Tablet) 0.5 mg PO Q6H PRN PRN Reason: anxiety Last Admin: 03/27/21 10:16 Dose: 0.5 mg Documented by: Losartan Potassium (Losartan Potassium 50 Mg Tablet) 50 mg PO DAILY [facility]; Protocol Last Admin: 03/28/21 10:43 Dose: Not Given Documented by: Magnesium Hydroxide (Milk Of Magnesia 30 Ml Oral.Susp) 30 ml PO DAILY PRN PRN Reason: Constipation Mirtazapine (Mirtazapine 15 Mg Tablet) 15 mg PO BEDTIME [facility] Last Admin: 03/28/21 08:25 Dose: Not Given Documented by: Risperidone (Risperidone 0.25 Mg Tablet) 0.5 mg PO BID [facility] Trazodone HCl (Trazodone Hcl 50 Mg Tablet) 50 mg PO BEDTIME PRN PRN Reason: Insomnia Vitamin D (Cholecalciferol (Vitamin D3) 25 Mcg Tablet) 25 mcg PO DAILY [facility] Last Admin: 03/28/21 10:43 Dose: Not Given Documented by: Allergies Allergies Allergy/AdvReac Type Severity Reaction Status Date / Time pneumococcal vaccine Allergy Redness of Verified 03/26/21 04:50 Skin Assessment & Plan Assessment & Plan (1) Benign essential HTN: Status: Acute Code(s): I10 - Essential (primary) hypertension Plan This is a 76 yo F with a PMH of HTN who was admitted to [facility] for hypoNa which was felt to be multifactorial. She was subsequently transferred to [facility] for management of her psychiatric condition. Medical consult requested for routine medical H&P as part of protocol for transfer from outside hospital. Plan: Increase Risperdal up to 0.5 mg po bid Keep Remeron 15 mg po qhs. F/U with results I spent minutes with the patient and/or on the patient floor today, greater than?50% of which was spent counseling/coordinating care. Reason for contiued inpatient stay Substantial Risk for: inability to function, rapid decompensation and med/psych decompensation
[2021-03-28 16:18] LABS: Appearance Urine HAZY; Color Urine YELLOW; Glucose Urine UA NEG (NEG); Leukocyte Esterase Urine 1+ (NEG); Nitrite Urine NEG (NEG); PH 5.5 (5.0-8.0); Specific Gravity - Urine >= 1.030 (1.005-1.025); Urine Blood TRACE (NEG); Urine Ketones 15 MG/DL (NEG); Urine Protein TRACE MG/DL (NEG-TRACE)
[2021-03-28 16:25] LABS: Bacteria Urine 2+ /LPF; Squamous Epithelial Cell Urine 1+ /LPF
[2021-03-28 16:26] LABS: Mucus Urine 1+ /LPF; RBC Urine 0-2 /HPF (0)
[2021-03-28 19:10] VITALS: BP 137/79; PULSE 98; RESP 16; TEMP 37.1; O2SAT 97
[2021-03-28] MEDS: Amoxicillin/Potassium Clav 500 MG TABLET PO (19:24)
[2021-03-28] MEDS: Mirtazapine 15 MG TABLET PO (20:06)
[2021-03-28] MEDS: risperiDONE 0.25 MG TABLET 0.5 MG PO (20:06)
[2021-03-29] MEDS: Amoxicillin/Potassium Clav 500 MG TABLET PO ×2 (06:21→17:48)
[2021-03-29] MEDS: Milk of Magnesia 30 ML ORAL.SUSP PO (06:45)
[2021-03-29] MEDS: hydrOXYzine HCL 25 MG TABLET PO (06:46)
[2021-03-29 08:00] VITALS: BP 151/73; PULSE 95; RESP 15; TEMP 37; O2SAT 98
[2021-03-29] MEDS: Cholecalciferol (Vitamin D3) 25 MCG TABLET PO (08:57)
[2021-03-29] MEDS: Losartan Potassium 50 MG TABLET PO (08:57)
[2021-03-29] MEDS: amLODIPine Besylate 2.5 MG TABLET PO (08:58)
[2021-03-29] MEDS: risperiDONE 0.25 MG TABLET 0.5 MG PO ×2 (08:58→20:07)
[2021-03-29 18:00] VITALS: BP 141/74; PULSE 99; RESP 17; TEMP 37.2; O2SAT 99
--- NOTE | 2021-03-29 18:19 | P.PNPSI_ITS ---
Subjective Subjective Date of Service: 03/29/21 Reason For Visit: generalized anxiety disorder Subjective Notes: Conditional Voluntary Interim History: The nursing staff reported that she has been confused, recently diagnosed with UTI. On interview she stated that she thought that she was going to be transferred and she was scared. I explained her that she is going to stay with does still paranoid and I explained that her delirium wheezing clear correlation with a UTI currently now on antibiotics. Mental Status Exam Mental Status Exam Patient Appearance: Well Grooomed Patient Orientation: Person Level of Consciousness: Awake Patient Behavior: Cooperative Mood Description: Depressed Affect Description: Constricted Patient Cognition Impaired: No Ability to Follow Directions: Good Speech Pattern: Clear Hallucinations: None Delusions: Paranoid Ideation Thought Process: Evasive Thought Content: positive for Circumstantial Judgement: Fair Diagnostics Vital Signs (24Hr): Vital Signs - 24 hr 03/28/21 19:10 03/29/21 08:00 Temperature 98.8 F 98.6 F Pulse Rate 98 95 Respiratory Rate 16 15 Blood Pressure 137/79 151/73 H Pulse Oximetry 97 98 BMI result Ver[place] 4 Body Mass Index [place] 4 19.8 Verdana 4 Verdana 4 Labs Results: 03/27/21 08:22 03/27/21 08:22 Labs: Laboratory Results - last 48 hr 03/28/21 Unknown Urine Color YELLOW Urine Appearance HAZY Urine pH 5.5 Ur Specific [place] >= 1.030 H Urine Protein TRACE Urine Glucose (UA) NEG Urine Ketones 15 Urine Blood TRACE Urine Nitrite NEG Ur Leukocyte Esterase 1+ H Urine RBC 0-2 Urine WBC 5-9 H Ur Squamous Epith Cells 1+ Urine Bacteria 2+ Urine Mucus 1+ Medications Medications Current Medications Acetaminophen (Acetaminophen 325 Mg Tablet) 650 mg PO Q6H PRN PRN Reason: Headache/Pain Mild Scale (1-3) Al Hydroxide/Mg Hydroxide (Magnesium Hydrox/Alum Hydrox 30 Ml Oral.Susp) 30 ml PO Q6H PRN PRN Reason: Heartburn/Nausea Amlodipine Besylate (Amlodipine Besylate 2.5 Mg Tablet) 2.5 mg PO DAILY [facility]; Protocol Last Admin: 03/29/21 08:58 Dose: 2.5 mg Documented by: Amoxicillin/Clavulanate Potassium (Amoxicillin/Potassium Clav 500 Mg Tablet) 500 mg PO Q12H [facility] Last Admin: 03/29/21 17:48 Dose: 500 mg Documented by: Hydroxyzine HCl (Hydroxyzine Hcl 25 Mg Tablet) 25 mg PO BEDTIME PRN PRN Reason: Anxiety Last Admin: 03/29/21 06:46 Dose: 25 mg Documented by: Lorazepam (Lorazepam 0.5 Mg Tablet) 0.5 mg PO Q6H PRN PRN Reason: anxiety Last Admin: 03/27/21 10:16 Dose: 0.5 mg Documented by: Losartan Potassium (Losartan Potassium 50 Mg Tablet) 50 mg PO DAILY [facility]; Protocol Last Admin: 03/29/21 08:57 Dose: 50 mg Documented by: Magnesium Hydroxide (Milk Of Magnesia 30 Ml Oral.Susp) 30 ml PO DAILY PRN PRN Reason: Constipation Last Admin: 03/29/21 06:45 Dose: 30 ml Documented by: Mirtazapine (Mirtazapine 15 Mg Tablet) 15 mg PO BEDTIME [facility] Last Admin: 03/28/21 20:06 Dose: 15 mg Documented by: Risperidone (Risperidone 0.25 Mg Tablet) 0.5 mg PO BID [facility] Last Admin: 03/29/21 08:58 Dose: 0.5 mg Documented by: Trazodone HCl (Trazodone Hcl 50 Mg Tablet) 50 mg PO BEDTIME PRN PRN Reason: Insomnia Vitamin D (Cholecalciferol (Vitamin D3) 25 Mcg Tablet) 25 mcg PO DAILY [facility] Last Admin: 03/29/21 08:57 Dose: 25 mcg Documented by: Allergies Allergies Allergy/AdvReac Type Severity Reaction Status Date / Time pneumococcal vaccine Allergy Redness of Verified 03/26/21 04:50 Skin Assessment & Plan Assessment & Plan (1) Benign essential HTN: Status: Acute Code(s): I10 - Essential (primary) hypertension Plan This is a 76 yo F with a PMH of HTN who was admitted to [facility] for hypoNa which was felt to be multifactorial. She was subsequently transferred [place] [facility] for management of her psychiatric condition. Medical consult requested for routine medical H&P as part of protocol for transfer from outside hospital. Plan: Increase Risperdal up to 0.5 mg po q.a.m. and 1 mg p.o. q.h.s. Keep Remeron 15 mg po qhs. Continue antibiotics F/U with results I spent minutes with the patient and/or on the patient floor today, greater than?50% of which was spent counseling/coordinating care. Reason for contiued inpatient stay Substantial Risk for: inability to function, rapid decompensation and med/psych decompensation
[2021-03-29] MEDS: Mirtazapine 15 MG TABLET PO (20:07)
[2021-03-30] MEDS: Amoxicillin/Potassium Clav 500 MG TABLET PO ×2 (06:12→17:40)
[2021-03-30 06:15] VITALS: BP 158/74; PULSE 100; RESP 16; TEMP 36.1; O2SAT 98
--- NOTE | 2021-03-30 09:45 | P.PNPSI_ITS ---
Subjective Subjective Date of Service: 03/30/21 Reason For Visit: generalized anxiety disorder Subjective Notes: Conditional Voluntary Interim History: The nursing staff reported the patient has been compliant with treatment. Still she looks paranoid and confused. On interview the patient denies new symptoms but she was internally preoccupied and anxious Mental Status Exam Mental Status Exam Patient Appearance: Well Grooomed Patient Orientation: Person Level of Consciousness: Awake Patient Behavior: Cooperative Mood Description: Depressed Affect Description: Constricted Patient Cognition Impaired: No Ability to Follow Directions: Good Speech Pattern: Clear Memory Description: Intact Hallucinations: None Delusions: Paranoid Ideation Thought Process: Evasive Thought Content: positive for Poverty of Content and positive for Loose Associations Judgement: Fair Diagnostics Vital Signs (24Hr): Vital Signs - 24 hr 03/29/21 18:00 03/30/21 06:15 Temperature 99.0 F 97 F Pulse Rate 99 100 Respiratory Rate 17 16 Blood Pressure 141/74 H 158/74 H Pulse Oximetry 99 98 BMI result [place] 4 Body Mass Index [place] 4 19.8 [place] 4 Verdana 4 Labs Results: 03/27/21 08:22 03/27/21 08:22 Labs: Laboratory Results - last 48 hr 03/28/21 Unknown Urine Color YELLOW Urine Appearance HAZY Urine pH 5.5 Ur Specific [place] >= 1.030 H Urine Protein TRACE Urine Glucose (UA) NEG Urine Ketones 15 Urine Blood TRACE Urine Nitrite NEG Ur Leukocyte Esterase 1+ H Urine RBC 0-2 Urine WBC 5-9 H Ur Squamous Epith Cells 1+ Urine Bacteria 2+ Urine Mucus 1+ Medications Medications Current Medications Acetaminophen (Acetaminophen 325 Mg Tablet) 650 mg PO Q6H PRN PRN Reason: Headache/Pain Mild Scale (1-3) Al Hydroxide/Mg Hydroxide (Magnesium Hydrox/Alum Hydrox 30 Ml Oral.Susp) 30 ml PO Q6H PRN PRN Reason: Heartburn/Nausea Amlodipine Besylate (Amlodipine Besylate 2.5 Mg Tablet) 2.5 mg PO DAILY [facility]; Protocol Last Admin: 03/29/21 08:58 Dose: 2.5 mg Documented by: Amoxicillin/Clavulanate Potassium (Amoxicillin/Potassium Clav 500 Mg Tablet) 500 mg PO Q12H [facility] Last Admin: 03/30/21 06:12 Dose: 500 mg Documented by: Hydroxyzine HCl (Hydroxyzine Hcl 25 Mg Tablet) 25 mg PO BEDTIME PRN PRN Reason: Anxiety Last Admin: 03/29/21 06:46 Dose: 25 mg Documented by: Lorazepam (Lorazepam 0.5 Mg Tablet) 0.5 mg PO Q6H PRN PRN Reason: anxiety Last Admin: 03/27/21 10:16 Dose: 0.5 mg Documented by: Losartan Potassium (Losartan Potassium 50 Mg Tablet) 50 mg PO DAILY [facility]; Protocol Last Admin: 03/29/21 08:57 Dose: 50 mg Documented by: Magnesium Hydroxide (Milk Of Magnesia 30 Ml Oral.Susp) 30 ml PO DAILY PRN PRN Reason: Constipation Last Admin: 03/29/21 06:45 Dose: 30 ml Documented by: Mirtazapine (Mirtazapine 15 Mg Tablet) 15 mg PO BEDTIME [facility] Last Admin: 03/29/21 20:07 Dose: 15 mg Documented by: Risperidone (Risperidone 0.25 Mg Tablet) 0.5 mg PO BID [facility] Last Admin: 03/29/21 20:07 Dose: 0.5 mg Documented by: Trazodone HCl (Trazodone Hcl 50 Mg Tablet) 50 mg PO BEDTIME PRN PRN Reason: Insomnia Vitamin D (Cholecalciferol (Vitamin D3) 25 Mcg Tablet) 25 mcg PO DAILY [facility] Last Admin: 03/29/21 08:57 Dose: 25 mcg Documented by: Allergies Allergies Allergy/AdvReac Type Severity Reaction Status Date / Time pneumococcal vaccine Allergy Redness of Verified 03/26/21 04:50 Skin Assessment & Plan Assessment & Plan (1) Benign essential HTN: Status: Acute Code(s): I10 - Essential (primary) hypertension Plan This is a 76 yo F with a PMH of HTN who was admitted to [facility] for hypoNa which was felt to be multifactorial. She was subsequently transferred to [facility] for management of her psychiatric condition. Medical consult requested for routine medical H&P as part of protocol for transfer from outside hospital. Plan: Increase Risperdal up to 0.5 mg po q.a.m. and 1 mg p.o. q.h.s. Keep Remeron 15 mg po qhs. Continue antibiotics F/U with results I spent minutes with the patient and/or on the patient floor today, greater than?50% of which was spent counseling/coordinating care. Reason for contiued inpatient stay Substantial Risk for: inability to function, rapid decompensation and med/psych decompensation
[2021-03-30] MEDS: risperiDONE 0.25 MG TABLET 0.5 MG PO (09:55)
[2021-03-30] MEDS: amLODIPine Besylate 2.5 MG TABLET PO (09:56)
[2021-03-30] MEDS: Losartan Potassium 50 MG TABLET PO (09:56)
[2021-03-30] MEDS: Cholecalciferol (Vitamin D3) 25 MCG TABLET PO (09:56)
[2021-03-30 18:00] VITALS: BP 120/64; PULSE 79; RESP 16; TEMP 36.8; O2SAT 95
[2021-03-30] MEDS: risperiDONE 1 MG TABLET PO (20:10)
[2021-03-30] MEDS: traZODone HCL 50 MG TABLET PO (20:10)
[2021-03-30] MEDS: Mirtazapine 15 MG TABLET PO (20:10)
[2021-03-31 06:00] VITALS: BP 108/62; PULSE 107; O2SAT 99
--- NOTE | 2021-03-31 09:03 | P.PNPSI_ITS ---
Subjective Subjective Date of Service: 03/31/21 Reason For Visit: generalized anxiety disorder Subjective Notes: Conditional Voluntary Interim History: The nursing staff reported that the patient last night woke up on a panic attack I overheard that I was exposed to a bug and I was going to be transferred . Yesterday, she had all her belongings packed next fo her. She refused her ATB since the pill was too big. On interview, she reported feeling anxious, still with some residual paranoia. Mental Status Exam Mental Status Exam Patient Appearance: Well Grooomed and Appropriate Patient Orientation: Person Level of Consciousness: Awake and Restless Patient Behavior: Cooperative and Anxious Mood Description: Suspicious, Withdrawn and Apprehensive Affect Description: Constricted Ability to Follow Directions: Good Speech Pattern: Clear Hallucinations: None Delusions: Paranoid Ideation Thought Process: Illogical and Evasive Thought Content: positive for Circumstantial, positive for Poverty of Content and positive for Thought Blocking Judgement: Fair Diagnostics Vital Signs (24Hr): Vital Signs - 24 hr 03/30/21 18:00 Temperature 98.2 F Pulse Rate 79 Respiratory Rate 16 Blood Pressure 120/64 Pulse Oximetry 95 BMI result [place] 4 Body Mass Index [place] 4 19.8 Verdana 4 Verdana 4 Labs Results: 03/27/21 08:22 03/27/21 08:22 Medications Medications Current Medications Acetaminophen (Acetaminophen 325 Mg Tablet) 650 mg PO Q6H PRN PRN Reason: Headache/Pain Mild Scale (1-3) Al Hydroxide/Mg Hydroxide (Magnesium Hydrox/Alum Hydrox 30 Ml Oral.Susp) 30 ml PO Q6H PRN PRN Reason: Heartburn/Nausea Amlodipine Besylate (Amlodipine Besylate 2.5 Mg Tablet) 2.5 mg PO DAILY [facility]; Protocol Last Admin: 03/30/21 09:56 Dose: 2.5 mg Documented by: Amoxicillin/Clavulanate Potassium (Amoxicillin/Potassium Clav 500 Mg Tablet) 500 mg PO Q12H [facility] Last Admin: 03/31/21 06:11 Dose: Not Given Documented by: Hydroxyzine HCl (Hydroxyzine Hcl 25 Mg Tablet) 25 mg PO BEDTIME PRN PRN Reason: Anxiety Last Admin: 03/29/21 06:46 Dose: 25 mg Documented by: Losartan Potassium (Losartan Potassium 50 Mg Tablet) 50 mg PO DAILY [facility]; Protocol Last Admin: 03/30/21 09:56 Dose: 50 mg Documented by: Magnesium Hydroxide (Milk Of Magnesia 30 Ml Oral.Susp) 30 ml PO DAILY PRN PRN Reason: Constipation Last Admin: 03/29/21 06:45 Dose: 30 ml Documented by: Mirtazapine (Mirtazapine 15 Mg Tablet) 15 mg PO BEDTIME [facility] Last Admin: 03/30/21 20:10 Dose: 15 mg Documented by: Risperidone (Risperidone 0.25 Mg Tablet) 0.5 mg PO DAILY [facility] Last Admin: 03/30/21 09:55 Dose: 0.5 mg Documented by: Risperidone (Risperidone 1 Mg Tablet) 1 mg PO BEDTIME DEANNA Last Admin: 03/30/21 20:10 Dose: 1 mg Documented by: Trazodone HCl (Trazodone Hcl 50 Mg Tablet) 50 mg PO BEDTIME PRN PRN Reason: Insomnia Last Admin: 03/30/21 20:10 Dose: 50 mg Documented by: Vitamin D (Cholecalciferol (Vitamin D3) 25 Mcg Tablet) 25 mcg PO DAILY [facility] Last Admin: 03/30/21 09:56 Dose: 25 mcg Documented by: Allergies Allergies Allergy/AdvReac Type Severity Reaction Status Date / Time pneumococcal vaccine Allergy Redness of Verified 03/26/21 04:50 Skin Assessment & Plan Assessment & Plan (1) Benign essential HTN: Status: Acute Code(s): I10 - Essential (primary) hypertension Plan This is a 76 yo F with a PMH of HTN who was admitted to [facility] for hypoNa which was felt to be multifactorial. She was subsequently transferred to [facility] for management of her psychiatric condition. Medical consult requested for [facility] H&P as part of protocol for transfer from outside hospital. Plan: Increase Risperdal up to 1 mg p.o. b.i.d Keep Remeron 15 mg po qhs. Continue antibiotics but now liquid F/U with results I spent minutes with the patient and/or on the patient floor today, greater than?50% of which was spent counseling/coordinating care. Reason for contiued inpatient stay Substantial Risk for: inability to function, rapid decompensation and med/psych decompensation
[2021-03-31] MEDS: amLODIPine Besylate 2.5 MG TABLET PO (09:07)
[2021-03-31] MEDS: Cholecalciferol (Vitamin D3) 25 MCG TABLET PO (09:07)
[2021-03-31] MEDS: Losartan Potassium 50 MG TABLET PO (09:07)
--- NOTE | 2021-03-31 15:50 | PC.NURSE ---
Pt refusing to allow RN to obtain urine sample, pt stated It is my pee, you can't have it, you don't really need it. I am leaving to go to the group today anyway . Pt refusing to use the hat on the toilet to observe output.
[2021-03-31 20:15] VITALS: BP 124/60; PULSE 101; RESP 20; TEMP 36.7; O2SAT 95
[2021-03-31] MEDS: risperiDONE 1 MG TABLET PO (20:18)
[2021-03-31] MEDS: Mirtazapine 15 MG TABLET PO (20:18)
[2021-04-01 05:46] LABS: MANUAL DIFF FLAG NO
[2021-04-01 05:51] LABS: Basophils Percent Auto 0.6 % (0-2); Eosinophils Absolute Auto 0.1 X10*3/uL (0.0-0.4); Eosinophils Percent Auto 1.3 % (0-4); Hematocrit 35.8 % (37.0-47.0); Imm Gran Abs Auto 0.01 X10*3/uL (0.00-0.03); Imm Gran Pct Auto 0.2 % (0.0-0.4); Lymphocytes Absolute Auto 1.2 X10*3/uL (1.2-4.9); Lymphocytes Percent Auto 25.9 % (20-40); Mean Corpuscular HGB Conc 33.5 g/dl (31.0-35.0); Mean Corpuscular Hemoglobin 31.7 pg (27.0-33.0); Mean Corpuscular Volume 94.7 fL (80.0-98.0); Mean Platelet Volume 10.9 fL (9.4-12.3); Monocytes Absolute Auto 0.3 X10*3/uL (0.1-1.2); Monocytes Percent Auto 7.2 % (2-11); Neutrophils Absolute Auto 3.1 x10*3/uL (2.0-8.3); Neutrophils Percent Auto 64.8 % (45-73); Platelet Count 254 X10*3/uL (160-400); Red Blood Count 3.78 X10*6/uL (4.20-5.50); Red Cell Distribution Width 12.1 % (11.0-16.0); White Blood Count 4.7 X10*3/uL (4.8-10.8)
[2021-04-01 06:00] VITALS: BP 122/66; PULSE 94; TEMP 36.7; O2SAT 97
[2021-04-01 06:06] LABS: Anion Gap 10 (12-20); Blood Urea Nitrogen 32 mg/dL (9-16); Calcium 9.5 mg/dL (8.4-10.2); Carbon Dioxide 26 mmol/L (22-29); Chloride 106 mmol/L (96-108); Creatinine Clr Calc Pharmacy 45.9; Estimated Glomerular Filt Rate 55; Glucose Random 102 mg/dL (60-115); Potassium 4.2 mmol/L (3.3-5.1); Sodium 138 mmol/L (135-145)
[2021-04-01] MEDS: Losartan Potassium 50 MG TABLET PO (08:10)
[2021-04-01] MEDS: risperiDONE 1 MG TABLET PO ×2 (08:10→20:19)
[2021-04-01] MEDS: Cholecalciferol (Vitamin D3) 25 MCG TABLET PO (08:10)
[2021-04-01] MEDS: amLODIPine Besylate 2.5 MG TABLET PO (08:10)
[2021-04-01 09:00] VITALS: BP 96/54; PULSE 107; RESP 17; TEMP 36.4; O2SAT 97
[2021-04-01 09:30] VITALS: BP 102/59; PULSE 97; RESP 16; TEMP 36.8; O2SAT 97
[2021-04-01 09:45] VITALS: BP 104/55; PULSE 97; RESP 16; TEMP 36.6; O2SAT 97
[2021-04-01 10:00] VITALS: BP 106/62; PULSE 94; TEMP 36.8; O2SAT 97
--- NOTE | 2021-04-01 15:10 | P.PNPSI_ITS ---
Subjective Subjective Date of Service: 04/01/21 Reason For Visit: generalized anxiety disorder Interim History: The nursing staff reported that she has been isolative in her room. Today in the morning she fell and apparently her vital signs were stable. On interview the patient remains very paranoid stating that she will be transferred to a program but I have already explained her that the plan is to treat her and then discharged back home with services. Her called me and left a message and I tried to call him back without success Mental Status Exam Mental Status Exam Patient Appearance: Well Grooomed Patient Orientation: Person and Situation Level of Consciousness: Disoriented and Restless Patient Behavior: Guarded, Passive and Suspicious Mood Description: Depressed Affect Description: Constricted Patient Cognition Impaired: No Ability to Follow Directions: Good Speech Pattern: Clear Hallucinations: None Delusions: Paranoid Ideation Thought Process: Linear Thought Content: positive for Circumstantial and positive for Linear Judgement: Fair Diagnostics Vital Signs (24Hr): Vital Signs - 24 hr 03/31/21 20:15 04/01/21 06:00 04/01/21 09:00 Temperature 98.1 F 98.1 F 97.6 F Pulse Rate 101 H 94 107 H Respiratory Rate 20 17 Blood Pressure 124/60 122/66 96/54 L Pulse Oximetry 95 97 97 04/01/21 09:30 04/01/21 09:45 04/01/21 10:00 Temperature 98.2 F 97.9 F 98.2 F Pulse Rate 97 97 94 Respiratory Rate 16 16 Blood Pressure 102/59 L 104/55 L 106/62 Pulse Oximetry 97 97 97 BMI result Verdana 4 Body Mass Index Verdana 4 19.8 Verdana 4 Verdana 4 Labs Results: 04/01/21 05:41 04/01/21 05:41 Labs: Laboratory Results - last 48 hr 04/01/21 04/01/21 05:41 05:41 WBC 4.7 L RBC 3.78 L Hgb 12.0 Hct 35.8 L MCV 94.7 MCH 31.7 MCHC 33.5 RDW 12.1 Plt Count 254 MPV 10.9 Immature Gran % (Auto) 0.2 Neut % (Auto) 64.8 Lymph % (Auto) 25.9 [place] % (Auto) 7.2 Eos % (Auto) 1.3 Baso % (Auto) 0.6 Lymph # (Auto) 1.2 [place] # (Auto) 0.3 Eos # (Auto) 0.1 Baso # (Auto) 0.0 Abs Immat Gran (auto) 0.01 Absolute Neuts (auto) 3.1 Absolute Nucleated RBC 0.000 Nucleated RBC % (auto) 0.0 Sodium 138 Potassium 4.2 Chloride 106 Carbon Dioxide 26 Anion Gap 10 L BUN 32 H Creatinine 0.99 Estim Creat Clear Calc 45.9 Estimated GFR 55 Random Glucose 102 Calcium 9.5 D Imaging Radiology Impressions: ITS Impressions Head CT 04/01/21 12:04 IMPRESSION: Unremarkable exam. Medications Medications Current Medications Acetaminophen (Acetaminophen 325 Mg Tablet) 650 mg PO Q6H PRN PRN Reason: Headache/Pain Mild Scale (1-3) Al Hydroxide/Mg Hydroxide (Magnesium Hydrox/Alum Hydrox 30 Ml Oral.Susp) 30 ml PO Q6H PRN PRN Reason: Heartburn/Nausea Amlodipine Besylate (Amlodipine Besylate 2.5 Mg Tablet) 2.5 mg PO DAILY [facility]; Protocol Last Admin: 04/01/21 08:10 Dose: 2.5 mg Documented by: Amoxicillin/Clavulanate Potassium (Amoxicillin/Potassium Clav 2,000 Mg/50 Ml Bottle) 500 mg PO BID [facility] Last Admin: 04/01/21 08:17 Dose: 500 mg Documented by: Hydroxyzine HCl (Hydroxyzine Hcl 25 Mg Tablet) 25 mg PO BEDTIME PRN PRN Reason: Anxiety Last Admin: 03/29/21 06:46 Dose: 25 mg Documented by: Losartan Potassium (Losartan Potassium 50 Mg Tablet) 50 mg PO DAILY [facility]; Protocol Last Admin: 04/01/21 08:10 Dose: 50 mg Documented by: Magnesium Hydroxide (Milk Of Magnesia 30 Ml Oral.Susp) 30 ml PO DAILY PRN PRN Reason: Constipation Last Admin: 03/29/21 06:45 Dose: 30 ml Documented by: Mirtazapine (Mirtazapine 15 Mg Tablet) 15 mg PO BEDTIME [facility] Last Admin: 03/31/21 20:18 Dose: 15 mg Documented by: Risperidone (Risperidone 1 Mg Tablet) 1 mg PO BID [facility] Last Admin: 04/01/21 08:10 Dose: 1 mg Documented by: Trazodone HCl (Trazodone Hcl 50 Mg Tablet) 50 mg PO BEDTIME PRN PRN Reason: Insomnia Last Admin: 03/30/21 20:10 Dose: 50 mg Documented by: Vitamin D (Cholecalciferol (Vitamin D3) 25 Mcg Tablet) 25 mcg PO DAILY [facility] Last Admin: 04/01/21 08:10 Dose: 25 mcg Documented by: Allergies Allergies Allergy/AdvReac Type Severity Reaction Status Date / Time pneumococcal vaccine Allergy Redness of Verified 03/26/21 04:50 Skin Assessment & Plan Assessment & Plan (1) Benign essential HTN: Status: Acute Code(s): I10 - Essential (primary) hypertension Plan This is a 76 yo F with a PMH of HTN who was admitted to [facility] for hypoNa which was felt to be multifactorial. She was subsequently transferred to [facility] for management of her psychiatric condition. Medical consult requested for routine medical H&P as part of protocol for transfer from outside hospital. Plan: Increase Risperdal up to 1 mg p.o. b.i.d Keep Remeron 15 mg po qhs. Continue antibiotics but now liquid F/U with results. Blood work and CT scan within normal limits I spent minutes with the patient and/or on the patient floor today, greater than?50% of which was spent counseling/coordinating care. Reason for contiued inpatient stay Substantial Risk for: inability to function, rapid decompensation and med/psych decompensation
[2021-04-01 20:15] VITALS: BP 109/57; PULSE 90; RESP 17; TEMP 36.9; O2SAT 96
[2021-04-01] MEDS: Mirtazapine 15 MG TABLET PO (20:19)
[2021-04-02 07:45] VITALS: BP 130/71; PULSE 93; TEMP 36.1; O2SAT 99
[2021-04-02] MEDS: Losartan Potassium 50 MG TABLET PO (08:40)
[2021-04-02] MEDS: Cholecalciferol (Vitamin D3) 25 MCG TABLET PO (08:40)
[2021-04-02] MEDS: amLODIPine Besylate 2.5 MG TABLET PO (08:40)
[2021-04-02] MEDS: risperiDONE 1 MG TABLET PO (08:43)
--- NOTE | 2021-04-02 14:26 | P.PNPSI_ITS ---
Subjective Subjective Date of Service: 04/02/21 Reason For Visit: generalized anxiety disorder Subjective Notes: Conditional Voluntary Interim History: The nursing staff reported the patient has been compliant with treatment but she seems very anxious. The social sciences research scientist talk with her yesterday and apparently they were talking about a higher level of care with her therapist. On groups, she was unable to participate 100% since she is ruminating about the transfer. Yesterday, the patient had a fall most likely due to the increase of Risperdal so we will change of Risperdal at bedtime. Today we have a long conversation with the patient and I explained her that she had medical problems and that is why her cognition was impaired. She wants to go home as soon as possible. At this moment, she remains mildly paranoid and anxious Mental Status Exam Mental Status Exam Patient Appearance: Well Grooomed Patient Orientation: Person Level of Consciousness: Awake Patient Behavior: Guarded and Passive Mood Description: Depressed Affect Description: Constricted Ability to Follow Directions: Fair Speech Pattern: Clear Hallucinations: None Delusions: Paranoid Ideation Thought Process: Linear Thought Content: positive for Circumstantial Judgement: Fair Diagnostics Vital Signs (24Hr): Vital Signs - 24 hr 04/01/21 20:15 04/02/21 07:45 Temperature 98.5 F 97.0 F Pulse Rate 90 93 Respiratory Rate 17 Blood Pressure 109/57 L 130/71 Pulse Oximetry 96 99 BMI result Verdana 4 Body Mass Index Verdana 4 19.8 Verdana 4 Verdana 4 Labs Results: 04/01/21 05:41 04/01/21 05:41 Labs: Laboratory Results - last 48 hr 04/01/21 04/01/21 05:41 05:41 WBC 4.7 L RBC 3.78 L Hgb 12.0 Hct 35.8 L MCV 94.7 MCH 31.7 MCHC 33.5 RDW 12.1 Plt Count 254 MPV 10.9 Immature Gran % (Auto) 0.2 Neut % (Auto) 64.8 Lymph % (Auto) 25.9 [place] % (Auto) 7.2 Eos % (Auto) 1.3 Baso % (Auto) 0.6 Lymph # (Auto) 1.2 [place] # (Auto) 0.3 Eos # (Auto) 0.1 Baso # (Auto) 0.0 Abs Immat Gran (auto) 0.01 Absolute Neuts (auto) 3.1 Absolute Nucleated RBC 0.000 Nucleated RBC % (auto) 0.0 Sodium 138 Potassium 4.2 Chloride 106 Carbon Dioxide 26 Anion Gap 10 L BUN 32 H Creatinine 0.99 Estim Creat Clear Calc 45.9 Estimated GFR 55 Random Glucose 102 Calcium 9.5 D Imaging Radiology Impressions: ITS Impressions Head CT 04/01/21 12:04 IMPRESSION: Unremarkable exam. Medications Medications Current Medications Acetaminophen (Acetaminophen 325 Mg Tablet) 650 mg PO Q6H PRN PRN Reason: Headache/Pain Mild Scale (1-3) Al Hydroxide/Mg Hydroxide (Magnesium Hydrox/Alum Hydrox 30 Ml Oral.Susp) 30 ml PO Q6H PRN PRN Reason: Heartburn/Nausea Amlodipine Besylate (Amlodipine Besylate 2.5 Mg Tablet) 2.5 mg PO DAILY [facility]; Protocol Last Admin: 04/02/21 08:40 Dose: 2.5 mg Documented by: Amoxicillin/Clavulanate Potassium (Amoxicillin/Potassium Clav 2,000 Mg/50 Ml Parmjit ttle) 500 mg PO BID [facility] Last Admin: 04/02/21 08:47 Dose: 500 mg Documented by: Hydroxyzine HCl (Hydroxyzine Hcl 25 Mg Tablet) 25 mg PO BEDTIME PRN PRN Reason: Anxiety Last Admin: 03/29/21 06:46 Dose: 25 mg Documented by: Losartan Potassium (Losartan Potassium 50 Mg Tablet) 50 mg PO DAILY [facility]; Protocol Last Admin: 04/02/21 08:40 Dose: 50 mg Documented by: Magnesium Hydroxide (Milk Of Magnesia 30 Ml Oral.Susp) 30 ml PO DAILY PRN PRN Reason: Constipation Last Admin: 03/29/21 06:45 Dose: 30 ml Documented by: Mirtazapine (Mirtazapine 15 Mg Tablet) 15 mg PO BEDTIME [facility] Last Admin: 04/01/21 20:19 Dose: 15 mg Documented by: Risperidone (Risperidone 2 Mg Tablet) 2 mg PO BEDTIME [facility] Trazodone HCl (Trazodone Hcl 50 Mg Tablet) 50 mg PO BEDTIME PRN PRN Reason: Insomnia Last Admin: 03/30/21 20:10 Dose: 50 mg Documented by: Vitamin D (Cholecalciferol (Vitamin D3) 25 Mcg Tablet) 25 mcg PO DAILY [facility] Last Admin: 04/02/21 08:40 Dose: 25 mcg Documented by: Allergies Allergies Allergy/AdvReac Type Severity Reaction Status Date / Time pneumococcal vaccine Allergy Redness of Verified 03/26/21 04:50 Skin Assessment & Plan Assessment & Plan (1) Benign essential HTN: Status: Acute Code(s): I10 - Essential (primary) hypertension Plan This is a 76 yo F with a PMH of HTN who was admitted to [facility] for hypoNa which was felt to be multifactorial. She was subsequently transferred to [facility] for management of her psychiatric condition. Medical consult requested for routine medical H&P as part of protocol for transfer from outside hospital. Plan: Change Risperdal to 2 mg p.o. q.h.s. Keep Remeron 15 mg po qhs. Continue antibiotics but now liquid F/U with results. Blood work and CT scan within normal limits I spent minutes with the patient and/or on the patient floor today, greater than?50% of which was spent counseling/coordinating care. Reason for contiued inpatient stay Substantial Risk for: inability to function, rapid decompensation and med/psych decompensation
[2021-04-02 18:00] VITALS: BP 112/61; PULSE 99; RESP 16; TEMP 36.8; O2SAT 95
[2021-04-02] MEDS: Mirtazapine 15 MG TABLET PO (19:54)
[2021-04-02] MEDS: risperiDONE 2 MG TABLET PO (19:54)
[2021-04-02] MEDS: traZODone HCL 50 MG TABLET PO (19:54)
[2021-04-03 07:30] VITALS: BP 145/65; PULSE 101; RESP 18; TEMP 36.8; O2SAT 99
[2021-04-03] MEDS: Cholecalciferol (Vitamin D3) 25 MCG TABLET PO (09:00)
[2021-04-03] MEDS: amLODIPine Besylate 2.5 MG TABLET PO (09:00)
[2021-04-03] MEDS: Losartan Potassium 50 MG TABLET PO (09:00)
--- NOTE | 2021-04-03 15:05 | P.PNPSI_ITS ---
Subjective Subjective Date of Service: 04/03/21 Reason For Visit: generalized anxiety disorder Subjective Notes: Conditional Voluntary Interim History: The nursing staff reports that she is visible in the unit, complaining of not drinking enough water but she looks hydrated. Yesterday the [facility] patient therapist did a [place] test and she scored 22/30 and she is aware of her deficiencies, she is very sad about her poor performance on the test. She feel mostly and executive functions she could not draw the clock or the cube but her short-term memory was fairly well. Today we discussed with the patient and stills she remains paranoid about going to a different program and I explained her that the discharge planning is back home and probably going to [facility] after discharge. Mental Status Exam Mental Status Exam Patient Appearance: Well Grooomed Patient Orientation: Person and Situation Level of Consciousness: Disoriented Patient Behavior: Cooperative Mood Description: Depressed Affect Description: Constricted Patient Cognition Impaired: No Ability to Follow Directions: Good Speech Pattern: Coherent Delusions: Not Present Thought Process: Linear Thought Content: positive for Circumstantial Judgement: Fair Diagnostics Vital Signs (24Hr): Vital Signs - 24 hr 04/02/21 18:00 04/03/21 07:30 Temperature 98.3 F 98.2 F Pulse Rate 99 101 H Respiratory Rate 16 18 Blood Pressure 112/61 145/65 H Pulse Oximetry 95 99 BMI result Verdana 4 Body Mass Index Verdana 4 19.8 [place] 4 Verdana 4 Labs Results: 04/01/21 05:41 04/01/21 05:41 Imaging Radiology Impressions: ITS Impressions Head CT 04/01/21 12:04 IMPRESSION: Unremarkable exam. Medications Medications Current Medications Acetaminophen (Acetaminophen 325 Mg Tablet) 650 mg PO Q6H PRN PRN Reason: Headache/Pain Mild Scale (1-3) Al Hydroxide/Mg Hydroxide (Magnesium Hydrox/Alum Hydrox 30 Ml Oral.Susp) 30 ml PO Q6H PRN PRN Reason: Heartburn/Nausea Amlodipine Besylate (Amlodipine Besylate 2.5 Mg Tablet) 2.5 mg PO DAILY [facility]; Protocol Last Admin: 04/03/21 09:00 Dose: 2.5 mg Documented by: Amoxicillin/Clavulanate Potassium (Amoxicillin/Potassium Clav 2,000 Mg/50 Ml Parmjit ttle) 500 mg PO BID [facility] Last Admin: 04/03/21 09:00 Dose: 500 mg Documented by: Hydroxyzine HCl (Hydroxyzine Hcl 25 Mg Tablet) 25 mg PO BEDTIME PRN PRN Reason: Anxiety Last Admin: 03/29/21 06:46 Dose: 25 mg Documented by: Losartan Potassium (Losartan Potassium 50 Mg Tablet) 50 mg PO DAILY [facility]; Protocol Last Admin: 04/03/21 09:00 Dose: 50 mg Documented by: Magnesium Hydroxide (Milk Of Magnesia 30 Ml Oral.Susp) 30 ml PO DAILY PRN PRN Reason: Constipation Last Admin: 03/29/21 06:45 Dose: 30 ml Documented by: Mirtazapine (Mirtazapine 15 Mg Tablet) 15 mg PO BEDTIME [facility] Last Admin: 04/02/21 19:54 Dose: 15 mg Documented by: Risperidone (Risperidone 2 Mg Tablet) 2 mg PO BEDTIME [facility] Last Admin: 04/02/21 19:54 Dose: 2 mg Documented by: Trazodone HCl (Trazodone Hcl 50 Mg Tablet) 50 mg PO BEDTIME PRN PRN Reason: Insomnia Last Admin: 04/02/21 19:54 Dose: 50 mg Documented by: Vitamin D (Cholecalciferol (Vitamin D3) 25 Mcg Tablet) 25 mcg PO DAILY [facility] Last Admin: 04/03/21 09:00 Dose: 25 mcg Documented by: Allergies Allergies Allergy/AdvReac Type Severity Reaction Status Date / Time pneumococcal vaccine Allergy Redness of Verified 03/26/21 04:50 Skin Assessment & Plan Assessment & Plan (1) Benign essential HTN: Status: Acute Code(s): I10 - Essential (primary) hypertension Plan This is a 76 yo F with a PMH of HTN who was admitted to [facility] for hypoNa which was felt to be multifactorial. She was subsequently transferred to [facility] for management of her psychiatric condition. Medical consult requested for routine medical H&P as part of protocol for transfer from outside hospital. Plan: Change Risperdal to 2 mg p.o. q.h.s. Keep Remeron 15 mg po qhs. Continue antibiotics but now liquid F/U with results. Blood work and CT scan within normal limits I spent minutes with the patient and/or on the patient floor today, greater than?50% of which was spent counseling/coordinating care. Reason for contiued inpatient stay Substantial Risk for: inability to function, rapid decompensation and med/psych decompensation
[2021-04-03 18:00] VITALS: BP 109/60; PULSE 93; RESP 17; TEMP 36.9
[2021-04-03] MEDS: risperiDONE 2 MG TABLET PO (23:35)
[2021-04-04] MEDS: Mirtazapine 15 MG TABLET PO ×2 (00:39→20:17)
[2021-04-04 07:45] VITALS: BP 145/66; PULSE 91; RESP 16; TEMP 36.9; O2SAT 99
[2021-04-04] MEDS: amLODIPine Besylate 2.5 MG TABLET PO (08:25)
[2021-04-04] MEDS: Losartan Potassium 50 MG TABLET PO (08:25)
[2021-04-04] MEDS: Cholecalciferol (Vitamin D3) 25 MCG TABLET PO (08:25)
[2021-04-04 14:24] VITALS: BMI 20.6
--- NOTE | 2021-04-04 15:27 | P.PNPSI_ITS ---
Subjective Subjective Date of Service: 04/04/21 Reason For Visit: generalized anxiety disorder Subjective Notes: Conditional Voluntary Interim History: The nursing staff reported that she is anxious at times, attended to a group, easily redirectable. On interview, she was very worried and concerned that she scoed very low on the MOCA. Mental Status Exam Mental Status Exam Patient Appearance: Well Grooomed Patient Orientation: Person and Situation Level of Consciousness: Awake Patient Behavior: Cooperative Mood Description: Calm and Withdrawn Affect Description: Constricted Patient Cognition Impaired: Yes Ability to Follow Directions: Good Speech Pattern: Clear Hallucinations: None Delusions: Not Present Thought Process: Linear Thought Content: positive for Poverty of Content, positive for Loose Associations and positive for Thought Blocking Judgement: Fair Diagnostics Vital Signs (24Hr): Vital Signs - 24 hr 04/03/21 18:00 04/04/21 07:45 Temperature 98.4 F 98.4 F Pulse Rate 93 91 Respiratory Rate 17 16 Blood Pressure 109/60 145/66 H Pulse Oximetry 99 BMI result Verdana 4 Body Mass Index Verdana 4 20.6 Verdana 4 Verdana 4 Labs Results: 04/01/21 05:41 04/01/21 05:41 Imaging Radiology Impressions: ITS Impressions Head CT 04/01/21 12:04 IMPRESSION: Unremarkable exam. Medications Medications Current Medications Acetaminophen (Acetaminophen 325 Mg Tablet) 650 mg PO Q6H PRN PRN Reason: Headache/Pain Mild Scale (1-3) Al Hydroxide/Mg Hydroxide (Magnesium Hydrox/Alum Hydrox 30 Ml Oral.Susp) 30 ml PO Q6H PRN PRN Reason: Heartburn/Nausea Amlodipine Besylate (Amlodipine Besylate 2.5 Mg Tablet) 2.5 mg PO DAILY [facility]; Protocol Last Admin: 04/04/21 08:25 Dose: 2.5 mg Documented by: Amoxicillin/Clavulanate Potassium (Amoxicillin/Potassium Clav 2,000 Mg/50 Ml Bottle) 500 mg PO BID [facility] Last Admin: 04/04/21 08:29 Dose: 500 mg Documented by: Hydroxyzine HCl (Hydroxyzine Hcl 25 Mg Tablet) 25 mg PO BEDTIME PRN PRN Reason: Anxiety Last Admin: 03/29/21 06:46 Dose: 25 mg Documented by: Losartan Potassium (Losartan Potassium 50 Mg Tablet) 50 mg PO DAILY [facility]; Prot ocol Last Admin: 04/04/21 08:25 Dose: 50 mg Documented by: Magnesium Hydroxide (Milk Of Magnesia 30 Ml Oral.Susp) 30 ml PO DAILY PRN PRN Reason: Constipation Last Admin: 03/29/21 06:45 Dose: 30 ml Documented by: Mirtazapine (Mirtazapine 15 Mg Tablet) 15 mg PO BEDTIME [facility] Last Admin: 04/04/21 00:39 Dose: 15 mg Documented by: Risperidone (Risperidone 2 Mg Tablet) 2 mg PO BEDTIME [facility]AN[facility] Last Admin: 04/03/21 23:35 Dose: 2 mg Documented by: Trazodone HCl (Trazodone Hcl 50 Mg Tablet) 50 mg PO BEDTIME PRN PRN Reason: Insomnia Last Admin: 04/02/21 19:54 Dose: 50 mg Documented by: Vitamin D (Cholecalciferol (Vitamin D3) 25 Mcg Tablet) 25 mcg PO DAILY [facility] Last Admin: 04/04/21 08:25 Dose: 25 mcg Documented by: Allergies Allergies Allergy/AdvReac Type Severity Reaction Status Date / Time pneumococcal vaccine Allergy Redness of Verified 03/26/21 04:50 Skin Assessment & Plan Assessment & Plan (1) Benign essential HTN: Status: Acute Code(s): I10 - Essential (primary) hypertension Plan This is a 76 yo F with a PMH of HTN who was admitted to [facility] for hypoNa which was felt to be multifactorial. She was subsequently transferred to [facility] for management of her psychiatric condition. Medical consult requested for routine medical H&P as part of protocol for transfer from outside hospital. Plan: Change Risperdal to 2 mg p.o. q.h.s. Keep Remeron 15 mg po qhs. Continue antibiotics but now liquid F/U with results. Blood work and CT scan within normal limits I spent minutes with the patient and/or on the patient floor today, greater than?50% of which was spent counseling/coordinating care. Reason for contiued inpatient stay Substantial Risk for: inability to function, rapid decompensation and med/psych decompensation
[2021-04-04 18:46] LABS: Appearance Urine CLEAR; Color Urine YELLOW; Glucose Urine UA NEG (NEG); Leukocyte Esterase Urine 1+ (NEG); Nitrite Urine NEG (NEG); Specific Gravity - Urine 1.025 (1.005-1.025); Urine Blood NEG (NEG); Urine Ketones NEG (NEG); Urine Protein NEG (NEG-TRACE)
[2021-04-04 19:24] LABS: Bacteria Urine 1+ /LPF; Squamous Epithelial Cell Urine 1+ /LPF
[2021-04-04 19:25] LABS: Amorphous Sediment Urine 1+ /LPF; Mucus Urine 1+ /LPF; RBC Urine 0 /HPF (0)
[2021-04-04 20:05] VITALS: BP 123/60; PULSE 102; RESP 17; TEMP 36.9; O2SAT 97
[2021-04-04] MEDS: risperiDONE 2 MG TABLET PO (20:17)
[2021-04-05 06:00] VITALS: BP 126/68; PULSE 106; RESP 17; TEMP 36.9; O2SAT 98
[2021-04-05] MEDS: Losartan Potassium 50 MG TABLET PO (08:08)
[2021-04-05] MEDS: amLODIPine Besylate 2.5 MG TABLET PO (08:09)
[2021-04-05] MEDS: Cholecalciferol (Vitamin D3) 25 MCG TABLET PO (08:09)
--- NOTE | 2021-04-05 12:39 | P.DS_ITS ---
DS: Providers Provider Date of Service: 04/05/21 Date of admission: 03/25/21 20:35 Date of discharge: 04/05/21 Primary care physician: Analilia Canales MD Consults: 03/25/21 20:54 Consult to Hospitalist Routine Consulting Provider: Hospitalist Reason For Exam: new admit from [facility] Attending physician on discharge: Milton Lofton DS: Diagnosis Discharge Diagnosis (1) Benign essential HTN: Status: Acute (2) Acute delirium: Status: Acute DS: Medications Discharge Medications Home Medications: Home Medications Medication Instructions Recorded Confirmed cyclosporine 0.05 % eye 1 drp OPHTHALMIC (EYE) Q12H 03/25/21 03/31/21 drops in a dropperette (Restasis) estradiol 0.5 g VAGINAL 3XW 03/25/21 04/01/21 hydrochlorothiazide 25 mg 25 mg PO DAILY 03/25/21 04/01/21 tablet lorazepam 0.5 mg tablet 0.5 mg PO BID PRN 03/25/21 04/01/21 losartan 50 mg tablet 50 mg PO DAILY 03/25/21 04/01/21 Mental Status Exam Mental Status Exam Patient Appearance: Well Grooomed Patient Orientation: Person and Situation Level of Consciousness: Awake Patient Behavior: Cooperative and Suspicious Mood Description: Withdrawn and Depressed Affect Description: Constricted Patient Cognition Impaired: Yes Ability to Follow Directions: Good Speech Pattern: Clear Memory Description: Intact Hallucinations: None Delusions: Not Present Thought Process: Linear and Slowed Thinking Thought Content: positive for Obsessional Thoughts, positive for Circumstantial, positive for Goal Oriented and positive for Poverty of Content Judgement: Fair Data Data Completed and Pending Completed studies during hospitalization [Text1]: 04/01/21 04/01/21 04/04/21 05:41 05:41 17:32 WBC 4.7 L RBC 3.78 L Hgb 12.0 Hct 35.8 L MCV 94.7 MCH 31.7 MCHC 33.5 RDW 12.1 Plt Count 254 MPV 10.9 Immature Gran % (Auto) 0.2 Neut % (Auto) 64.8 Lymph % (Auto) 25.9 [place] % (Auto) 7.2 Eos % (Auto) 1.3 Baso % (Auto) 0.6 Lymph # (Auto) 1.2 [place] # (Auto) 0.3 Eos # (Auto) 0.1 Baso # (Auto) 0.0 Abs Immat Gran (auto) 0.01 Absolute Neuts (auto) 3.1 Absolute Nucleated RBC 0.000 Nucleated RBC % (auto) 0.0 Sodium 138 Potassium 4.2 Chloride 106 Carbon Dioxide 26 Anion Gap 10 L BUN 32 H Creatinine 0.99 Estim Creat Clear Calc 45.9 Estimated GFR 55 Random Glucose 102 Calcium 9.5 D Urine Color YELLOW Urine Appearance CLEAR Urine pH 6.0 Ur Specific [place] 1.025 Urine Protein NEG Urine Glucose (UA) NEG Urine Ketones NEG Urine Blood NEG Urine Nitrite NEG Ur Leukocyte Esterase 1+ H Urine RBC 0 Urine WBC 1-4 Ur Squamous Epith Cells 1+ Amorphous Sediment 1+ Urine Bacteria 1+ Urine Mucus 1+ Imaging Diagnostic Imaging Impressions Head CT 04/01/21 12:04 IMPRESSION: Unremarkable exam. DS: Summary Hospital Course Hospital Course: The patient was transfer from another hospital to this facility since she has an acute change in mental status after an episode of hyponatremia. Previously, she had an injury on her ankle a few months ago and her functionality decreased and she presented depressive symptoms. Please see HPI of the admission note for further details. On admission, the patient had depressive symptoms elicited by depressed mood, anhedonia, lack of energy, feelings of hopelessness and worthlessness and increased anxiety. Also the patient complain of paranoia stating that we will transfer her to a different place and she looked internally preoccupied. We discussed risks, benefits, side-effects and alternatives and she agreed to start mirtazapine titrated up to 50 mg p.o. q.h.s. 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 Risperdal was titrated up to 2 mg p.o. q.h.s.. While she was admitted, she had a fall, most likely due to over-sedation. A full workout was done and showed no new changes. Her CT scan was normal. While she was admitted, she also presented with a UTI that was treated. We had several family meetings with her and according to him, the cognition of the patient deteriorated in the last months in clear correlation with her loss of functionality after the ankle injuury. We did a [place] test and she scored very low, 22/30 and the main impairment was on executive function. Since there were no safety concerns, discharge planning was discussed. Time spent discussing smoking cessation with patient: 3 to 10 minutes Status at Discharge Cognitive/behavioral status at discharge: Mild cognitive decline as per 's report. Functional status at discharge: uses cane/walker Overall status at discharge: patient is back to baseline Time Spent with Patient Time attestation: Total time spent providing and/or coordinating discharge services: Time spent: Less than 30 minutes Discharge Plan Discharge Patient Disposition: Home, Self-Care Discharge Diagnosis: Delirium MDD Referrals: Dr. Ramu Shah @ [facility] [Other] - 3-5 Days (SW faxed over all records requested by neuro office, please call to schedule appointment post discharge from unit.) Mario Anguiano DIESEL TRACTOR ENGINE MECHANIC (therapists) [Other] - 04/09/21 3:30 pm (Appointments scheduled for Friday, April 09, 2021 @ 3:30 PM and on Monday, April 12, 2021 @ 12:30 PM) Rolan OTTO (partial hospitalization) [Other] - 1 Week (Referral made on 04/05/21, PHP will call to schedule date and time. Please follow up with in 3-5 days post discharge to see where you are on wait list..) Karina Mcmanus (CISTERN ROOM OPERATOR/SUPERVISOR PRECISION [employer] ELEMENTS) [Other] - 04/15/21 (Appointment scheduled for Thursday, April 15, 2021 @ ?. DWAYNE called and left message to obtain time of scheduled appointment for 04/15/21, however got voice mail, DWAYNE left message and waiting for return phone call back. Please call office to obtain time of appointment post discharge and ask if in-person visit or telehealth.) Analilia Canales MD [Primary Care Provider] - 1 Week Discharge Medications: New losartan 50 mg Tablet 50 mg PO DAILY 30 Days Qty: 30 0RF Protocol: Hold for SBP< HOLD for SBP < : 90 trazodone 50 mg Tablet 50 mg PO BEDTIME PRN (Reason: Insomnia) 30 Days Qty: 30 0RF amlodipine 2.5 mg Tablet 2.5 mg PO DAILY 30 Days Qty: 30 0RF Protocol: Hold for SBP< HOLD for SBP < : 90 amoxicillin-pot clavulanate 200-28.5 mg/5 mL Suspension For Reconstitution 500 mg PO BID 4 Days Qty: 87.527 0RF risperidone 2 mg Tablet 2 mg PO BEDTIME 30 Days Qty: 30 0RF mirtazapine 15 mg Tablet 15 mg PO BEDTIME 30 Days Qty: 30 0RF cholecalciferol (vitamin D3) 25 mcg (1,000 unit) Tablet 25 mcg PO DAILY 30 Days Qty: 30 0RF Continued estradiol 0.01 % (0.1 mg/gram) Cream 0.5 g VAGINAL 3XW 0RF Restasis 0.05 % Dropperette 1 drp OPHTHALMIC (EYE) Q12H 0RF Rx Instructions: 1 drop both eyes Discontinued losartan 50 mg Tablet 50 mg PO DAILY 0RF lorazepam 0.5 mg Tablet 0.5 mg PO BID PRN (Reason: Anxiety) 0RF hydrochlorothiazide 25 mg Tablet 25 mg PO DAILY 0RF Discharge Orders: Discharge Order (Routine); Ordered 04/05/21 Ordered By: Milton Lofton Diet: advance to usual diet Activity on Discharge: As tolerated Stand Alone Forms: Patient Portal Discharge page, Community Support Care Plan Goals: CARE PLAN GOALS AT ACHIEVED Health Concerns: CONTINUE TREATMENT WITH REGULAR PRESCRIBER Plan of Treatment: CONTINUE MEDICATION MANAGEMENT WITH OUTPATIENT PROVIDER. CONSULTATION WITH NEUROPSYCH TESTING. CONTINUE PSYCHOTHERAPY Assessment: Elderly female with a recent history of depression in the context of loss of functionality, with increased anxiety and dysphoria that developed delirium after an episode of hyponatremia and UTI. Cognitively, with mild changes in the last months. At this moment safe and ready for discharge.
== END 2021-04-05 14:43 | disposition home or self-care (01) | DRG 885 ==
PROVIDERS: Registered Nurse; Admitting Provider Psychiatry & Neurology Psychiatry; PCP Internal Medicine; Visit Provider Psychiatry & Neurology Psychiatry
DX: F33.1 Major depressive disorder, recurrent, moderate (principal); F05 Delirium due to known physiological condition; G47.00 Insomnia, unspecified; Z85.828 Personal history of other malignant neoplasm of skin; Z79.899 Other long term (current) drug therapy
CPT/HCPCS: 36415; 70450; 80048; 80061; 81001; 82607; 82746; 83036; 84439; 84443; 85025

== ENCOUNTER 2021-05-10 10:45 | Outpatient (RCR) | payer OTHER, SELFPAY ==
--- NOTE | 2021-04-17 15:08 | HO.PS.ADMBH ---
[facility] Date of Service: 04/17/21 Chief Complaint: MDD Sources of Information: patient interviewed, chart reviewed and crisis/core team assessment reviewed HPI Guardianship: No Medical Problems Affecting Mental Status: No Narrative: Client is a 76-year-old female, referred to [facility] through [facility] inpatient geriatric psychiatric unit, as a step-down. She had presented to [facility] on March 20 due to concerns of being dehydrated. Pt was found to be hyponatremic and this was attributed to volume depletion, HCTZ, fluoxetine, and SIADH. Pt had recently started ativan 0.5 mg QD PRN and prozac in 01/2021. While at [facility], she received medication changes, and her sodium was normalized. She was seen by Psychiatry, and was found to have passive SI with plans to harm herself if discharged. She was found to require inpatient level of care, and was transferred to [facility] geriatric unit. She was admitted to [facility] on 03/25/2021, and discharged on 04/05/2021. She reports that she does have a level of depression. A chart review reveals that she has been reporting depression since spring. While inpatient at this facility, treated for delirium, depression, and paranoia. She presented during this intake as anxious, guarded, with some paranoia. She states that she does have some depression. She has recently seen an outpatient provider,Karina Washington APRN, on 04/15/21. She says that her provider has made several medication changes, including lowering the risperidone to 1 mg at night, and starting her on a low dose of bupropion. She was instructed to take 37.5 mg of bupropion daily, and then after 1 week increase to 75 mg daily. She states that she does not like to take medications, and is not quite sure if she needs these medications at this time. She states that she believes her issues are mostly Medical, such as poor vision, and other issues, rather than any type of psychiatric illness. Per chart review, she had reported that she 1st experienced depression when she was in her 20s. She had received medications in the past, but had stopped them years ago. She reported that she had been stable for 40 years, and only recently within the past year, related to her foot injury and loss of ability to be able to walk daily, has she experienced return of depressive symptoms. Client was raised by both parents, along with to sisters. Her sisters currently live in assisted living in [place]. Client met developmental milestones as expected, graduated high school, college, and has obtained to master's degrees. 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 She and her have a step daughter and grandchildren. She describes her family as supportive. She denies any thoughts of wanting to harm herself at this time. She reports that she drank alcohol several drinks on a daily basis for years, but has stopped 3-4 months ago, prior to being started on antidepressant medication. Per intake assessment yesterday, she had reported symptoms of depression including anhedonia, feeling hopeless and helpless, with some anxiety. Today however she appears somatically focused, perseverative on physical ailments. Past Psychiatric History: -Recent IPLOC, [facility] geriatric psych. No hx of PHP, or CCS. Medical Evaluation Reviewed: Yes [facility] Family History: unknown Social History: -Pt resides with her . 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 Has one step-daughter and grandchildren. Substance History: ETOH, daily, several drinks for years, stopped 3 to 4 months ago Trauma History: denies Meds/Allergies Allergies Allergies Allergy/AdvReac Type Severity Reaction Status Date / Time pneumococcal vaccine Allergy Redness of Verified 03/26/21 04:50 Skin Mental Status Exam Mental Status Exam Patient Appearance: Well Grooomed Patient Orientation: Person and Situation Level of Consciousness: Awake, Appropriate and Alert Patient Behavior: Cooperative and Suspicious Mood Description: Withdrawn, Depressed and Anxious Affect Description: Constricted Patient Cognition Impaired: Yes Ability to Follow Directions: Good Speech Pattern: Clear, Perseverating and Soft-Spoken Memory Description: Intact Hallucinations: None Delusions: Not Present Thought Process: Linear and Slowed Thinking Thought Content: positive for Obsessional Thoughts, positive for Circumstantial, positive for Goal Oriented, positive for Perseveration and positive for Poverty of Content Depressive Symptoms: Loss of Int. in Activity and Unhappiness Judgement: Fair Telehealth Telehealth Location of provider rendering services: practice address Location of patient: address on file Patient Identification confirmed using: Name, : Yes Telehealth method: video Patient verbally consented to treatment: Yes Patient verbally consented to billing insurance company: Yes Patient informed of any privacy concerns related to visit: Yes Time spent with patient (mins): 45 Assessment & Plan Assessment & Plan (1) MDD (major depressive disorder), recurrent episode, moderate: Status: Acute Code(s): F33.1 - Major depressive disorder, recurrent, moderate Assessment and Plan: Client presents as guarded, constricted. She was somatically focused during interview, and stated that her concerns were mostly physical, not psychiatric. She did however state that she was experiencing depression. She had met recently with a new outpatient psychiatric provider, and had several medication changes at that time. She would prefer that this typewriters functional tester do not make any changes, as she stated ?too many people changing my meds ?. She also reported she is unsure that she wishes to remain in this program, and that she is mainly here due to her 's insistence. We did discuss benefits of program, including structure and support, as well as learning coping skills regarding managing symptoms of depression. She stated that she agree that would be helpful, and that she would think it ove, and discuss with her . She did voice frustration with technology, states that it is difficult for her to follow along on video format, due to having poor vision. She denies any type of thought of harm to self or others, no safety concern. Plan 1. Continue with current medication regimen as prescribed by outpatient provider. 2. Continue with current [facility] plan of care. 3. Follow-up as per protocol. Patient educated on: diagnosis, medication risk/benefits and therapeutic strategies Informed Consent: understands Reason for continued partial hosp. stay Substantial Risk for: inability to function and med/psych decompensation Certification I certify that partial hospital treatment is medically necessary due to the symptoms and problems resulting from the patient's mental illness and the failure to treat the patient at the partial hospital level of care would likely result in the patient requiring inpatient psychiatric care which could not be prevented at a less intensive level of care.
[2021-04-17 15:42] VITALS: BMI 20.9
--- NOTE | 2021-04-18 08:33 | PC.ADMIT ---
Patient is a 76 year old female who was referred to [facility] PHP by [facility] inpatient behavioral health tosha-psychiatric unit d/t increased depression with passive SI, anxiety, and increased paranoia. Prior to hospitalization patient went to [facility] and was treated medically for dehydration, hyponatremia, and a UTI . In addition, it was reported prior to going into the hospital patient had some medication changes starting new medications Prozac and Ativan. Patient stated she also had a fall when she went to the hospital and hit the right side of her face and bruised R knee. CT scan negative, chest x ray negative. Patient attending PHP as a step down from inpatient treatment. Patient is unsure if this is the right program for her. Patient did state that her wants her to do the program. Reports vision issues and having difficulty reading. She stated she saw an eye doctor recently and no changes made in her prescription glasses for near and farsighted vision. Patient also anxious regarding the technology with the online format. Patient did however, with staff instruction, get into the group and read an email in order to do so without any help from her who was helping her previously and getting frustrated with the technology himself. Patient did appear suspicious at times. Patient reports recent medication changes since hospitalization from her prescriber, Karina Washington. Patient stated Amlodipine was discontinued d/t low BP, Risperdal decreased from 2 mg to 1 mg and Bupropion was added. Mimi Ellsworth COLLEGE FOOTBALL COACH aware. Patient stated her depression started when she injured her ankle accidentally twisting it last May. Patient stated prior to that she enjoyed walking 2 miles daily. Patient reports she has seen an orthopedist however has not followed up as she has been in the hospital. Patient to follow up regarding this-may need surgery. She is also worried that insurance won't cover further workup/surgery as she stated her insurance was not very good. Patient is alert and oriented x4. Presented with depressed mood anxious affect. Asked if she was having thoughts to kill or harm herself and she stated, could be however she stated she has not plan or intent to do this. Asked patient who she could contact if feeling unsafe and she stated her . Reconciled patient's medications with patient and discharge paperwork from [facility] inpatient unit.
--- NOTE | 2021-04-18 08:38 | PC.NURSE ---
Patient called this morning and left a voice mail message stating she has decided not to continue the program. Program team is aware.
--- NOTE | 2021-04-18 16:23 | PC.NURSE ---
Case opened in treatment team.
--- NOTE | 2021-04-19 17:41 | HO.PHPPROGNO ---
Subjective Subjective Date of Service: 04/19/21 Reason For Visit: MDD Interim History: Patient seen and discussed with team. Patient evaluated this today and upon interview she reports feeling concerned that her eyesight is not very good and she is perseverative that she doesnt know what?s causing that. She saw an Tire Fabricator he reportedly told her that her left eyesight seemed worse, thought it due to cataracts. However, pt is perseverative that medication may be causing this, repeatedly states I dont know what it is, something is causing this. I do not think this is an anticholinergic SE, as pt says her vision issues started 6 weeks ago, which is prior to her most recent inpatient admission and med starts. I recommended she follow up with her PCP/ urgent care and shotweld operator. Says her sleep is not great, remeron is not helping, reviewed that wellbutrin may be worsening sleep, recommended she discuss this with Karina Washington. Willing to trial a lower dose of remeron, as this is more sedating. Pt denies SI/SIB and says she is feeling safe. Mood is a little out of whack, I'm just concerned about my eyes, if I start losing my vision that?s pretty serious, says she had to use a magnifying glass on the computer screen. Of note, pt had some issues logging on to the [employer] and she asked if she had not been able to log on, would I have called the police on her to have her taken away to the hospital. Thought process is paranoid in context and illogical, at times has difficulty with reality testing- wondering if this is baseline, as pt continued to present with paranoid ideations and somatic concerns upon most recent discharge from . Medication Compliance: Yes Side effects from medications: No Attending Groups: Yes Review of Systems Acute medical concerns: No Medical Review of Systems: unchanged Mental Status Exam Mental Status Exam Narrative: Patient Appearance:?Well Groomed Patient Orientation:?Person and Situation Level of Consciousness:?Awake, Appropriate and Alert Patient Behavior:?Cooperative and Suspicious Mood Description:?Withdrawn, Depressed and Anxious Affect Description:?Constricted Patient Cognition Impaired:?Yes Ability to Follow Directions:?Good Speech Pattern:?Clear, Perseverating and Soft-Spoken Memory Description:?Intact Hallucinations:?None Delusions:?Not Present Thought Process:?Linear and Slowed Thinking Thought Content:?positive for Obsessional Thoughts, positive for Circumstantial, positive for Goal Oriented, positive for Perseveration and positive for Poverty of Content Depressive Symptoms:?Loss of Int. in Activity and Unhappiness Judgment:?Fair Diagnostics Vital Signs (24Hr): BMI result Body Mass Index 20.9 Assessment & Plan Assessment & Plan (1) MDD (major depressive disorder), recurrent episode, moderate: Status: Acute Code(s): F33.1 - Major depressive disorder, recurrent, moderate Plan Client presents as guarded, constricted, paranoid, and with somatic concerns i.e. vision concerns.?She is working with Karina Washington for med management and was most recently started on wellbutrin, unclear if this is worsening sleep, also I have some concern with it being activating. Pt does not want to discontinue wellbutrin, prefers to discuss this with Karina. Will lower remeron to 7.5 mg QHS to see if this helps with sleep. Plan 1. Continue with current medication regimen as prescribed by outpatient provider. 04/19: lower remeron to 7.5 mg QHS 2. Continue with current [facility] plan of care. 3. Follow-up as per protocol. Patient educated on: diagnosis, medication risk/benefits and therapeutic strategies Certification I certify that partial hospital treatment is medically necessary due to the symptoms and problems resulting from the patient's mental illness and the failure to treat the patient at the partial hospital level of care would likely result in the patient requiring inpatient psychiatric care which could not be prevented at a less intensive level of care. I spent minutes with the patient and/or on the patient floor today, greater than?50% of which was spent counseling/coordinating care. Discharge Plan Discharge Attending provider: Milton Lofton Medications: New mirtazapine 7.5 mg tablet 7.5 mg PO BEDTIME Qty: 14 0RF Discontinued mirtazapine 15 mg Tablet 15 mg PO BEDTIME 30 Days Qty: 30 0RF No Action Restasis 0.05 % Dropperette 1 drp OPHTHALMIC (EYE) Q12H 0RF Rx Instructions: 1 drop both eyes losartan 50 mg Tablet 50 mg PO DAILY 30 Days Qty: 30 0RF Protocol: Hold for SBP< HOLD for SBP < : 90 trazodone 50 mg Tablet 50 mg PO BEDTIME PRN (Reason: Insomnia) 30 Days Qty: 30 0RF cholecalciferol (vitamin D3) 25 mcg (1,000 unit) Tablet 25 mcg PO DAILY 30 Days Qty: 30 0RF bupropion HCl 75 mg Tablet See Rx Instructions .ROUTE .COMPLEX 0RF Rx Instructions: Take 1/2 tab x 1 week then take 1 tab daily. risperidone [Risperdal] 1 mg Tablet 1 mg PO BEDTIME 0RF Label Comments: Patient stated her prescriber Shayy Chappell's decreased the dose from 2 mg to 1 mg at HS. Stand Alone Forms: Patient Portal Discharge page
--- NOTE | 2021-04-25 15:31 | HO.PHPPROGNO ---
Subjective Subjective Date of Service: 04/25/21 Reason For Visit: MDD Guardianship: No Medical Problems Affecting Mental Status: Yes (possible cognitive decline, has been referred for neurologic testing) Interim History: Jessie reports she is ?so-so today ?. Reports poor sleep. Reports ongoing depression, states no improvement. Denies any SI, no thoughts of harm to self or others, no safety concern. Denies auditory or visual hallucinations. Denies paranoia, but then stated ?it is hard to know who to trust and believe ?. Outpatient provider was contacted by program RN, they are requesting a release of information form. Form to be sent. Medication Compliance: Yes Side effects from medications: No Attending Groups: Yes Review of Systems Acute medical concerns: No Medical Review of Systems: unchanged Review of Systems Review of Systems Yes all other systems are reviewed and are negative Constitutional: Reports no additional constitutional complaints Mental Status Exam Mental Status Exam Narrative: Patient Appearance:?Well Groomed, dressed appropriately. Patient Orientation:?A&OX4. Level of Consciousness:?Awake, Appropriate and Alert Patient Behavior:?Cooperative, Suspicious Mood Description:?Withdrawn, Depressed and Anxious Affect Description:?Constricted Patient Cognition Impaired:?Yes Ability to Follow Directions:?Good Speech Pattern:?Clear, Perseverating and Soft-Spoken. Focused on prescriptions, pharmacy. Memory Description:?Grossly Intact Hallucinations:?None Delusions:?Paranoia. Thought Process:?Linear and Slowed Thinking Thought Content:?positive for Obsessional Thoughts, positive for Circumstantial, positive for Goal Oriented, positive for Perseveration and positive for Poverty of Content Depressive Symptoms:?Loss of Int. in Activity and Unhappiness Judgment:?Fair Delusions: Paranoid Ideation Diagnostics Vital Signs (24Hr): BMI result Body Mass Index 20.9 Assessment & Plan Assessment & Plan (1) MDD (major depressive disorder), recurrent episode, moderate: Status: Acute Code(s): F33.1 - Major depressive disorder, recurrent, moderate Assessment and Plan: Jessie reports she is ?so-so today ?. Reports poor sleep. Reports ongoing depression, states no improvement. Denies any SI, no thoughts of harm to self or others, no safety concern. Denies auditory or visual hallucinations. Denies paranoia, but then stated ?it is hard to know who to trust and believe ?. Discussed current medication regimen at length. Discussed recent change to mirtazapine from 15 mg to 7.5 mg. She reports she would prefer to remain at 15, new script sent to pharmacy at higher dose. Client was confused at times, stating that she needs a provider. It was explained that she has an outpatient provider. She reports that she feels safe at this time, but that she does not feel she is improved regarding symptoms. When asked if she feels her thoughts are any more clear coherent, she stated ?not so much ?. Discussed current dose of Risperdal, I encouraged her to consider taking an increased dose. She had been receiving 2 mg at bedtime while inpatient. Once she was discharged her outpatient provider dropped the bedtime dose to 1 mg. We discussed possibility of increasing it to 1.5 mg at bedtime, or consider 0.5 in the a.m. and 1 mg at bedtime. She became suspicious, and stated that although she is not trying to be disrespectful, she does not know who to believe. She was not willing to consider a medication change at this time regarding risperidone. Plan 1. Increase mirtazapine to 15 mg at bedtime. 2. Continue all other medications as currently prescribed. 3. Continue to follow current [facility] plan of care. 4. Follow-up as per protocol. 5. Contact outpatient provider once release has been signed. Patient educated on: diagnosis, medication risk/benefits and therapeutic strategies Informed Consent: further education needed Reason for contiued partial hosp. stay Substantial Risk for: inability to function, rapid decompensation and med/psych decompensation Certification I certify that partial hospital treatment is medically necessary due to the symptoms and problems resulting from the patient's mental illness and the failure to treat the patient at the partial hospital level of care would likely result in the patient requiring inpatient psychiatric care which could not be prevented at a less intensive level of care. I spent ____30__ minutes with the patient and/or on the patient floor today, greater than?50% of which was spent counseling/coordinating care. Discharge Plan Discharge Attending provider: Milton Lofton Medications: New mirtazapine 15 mg tablet 15 mg PO BEDTIME 30 Days Qty: 30 0RF Discontinued mirtazapine 15 mg Tablet 15 mg PO BEDTIME 30 Days Qty: 30 0RF No Action Restasis 0.05 % Dropperette 1 drp OPHTHALMIC (EYE) Q12H 0RF Rx Instructions: 1 drop both eyes losartan 50 mg Tablet 50 mg PO DAILY 30 Days Qty: 30 0RF Protocol: Hold for SBP< HOLD for SBP < : 90 trazodone 50 mg Tablet 50 mg PO BEDTIME PRN (Reason: Insomnia) 30 Days Qty: 30 0RF cholecalciferol (vitamin D3) 25 mcg (1,000 unit) Tablet 25 mcg PO DAILY 30 Days Qty: 30 0RF bupropion HCl 75 mg Tablet See Rx Instructions .ROUTE .COMPLEX 0RF Rx Instructions: Take 1/2 tab x 1 week then take 1 tab daily. risperidone [Risperdal] 1 mg Tablet 1 mg PO BEDTIME 0RF Label Comments: Patient stated her prescriber Shayy Chappell's decreased the dose from 2 mg to 1 mg at HS. Stand Alone Forms: Patient Portal Discharge page Telehealth Telehealth Location of provider rendering services: practice address Location of patient: address on file Patient Identification confirmed using: Name, : Yes Telehealth method: video Patient verbally consented to treatment: Yes Patient verbally consented to billing insurance company: Yes Patient informed of any privacy concerns related to visit: Yes Time spent with patient (mins): 20
--- NOTE | 2021-05-02 11:59 | HO.PHPPROGNO ---
Subjective Subjective Date of Service: 05/02/21 Reason For Visit: MDD Guardianship: No Medical Problems Affecting Mental Status: No Interim History: Jessie describes mood as a little anxious today . Marjorie has had several medication changes when she saw her outpatient psychiatric provider this week. Marjorie feels safe at this time. When asked about SI, reports ?not really?. Continues with depressed, anxious affect, although appears to be slightly improved. Medication Compliance: Yes Side effects from medications: No Attending Groups: Yes Review of Systems Acute medical concerns: No Medical Review of Systems: unchanged Review of Systems Review of Systems Yes all other systems are reviewed and are negative Constitutional: Reports no additional constitutional complaints Mental Status Exam Mental Status Exam Narrative: Patient Appearance:?Well Groomed, dressed appropriately. Patient Orientation:?A&OX4. Level of Consciousness:?Awake, Appropriate and Alert Patient Behavior:?Cooperative, Suspicious Mood Description:?Anxious Affect Description:?Anxious and depressed, although improving Patient Cognition Impaired:?no Ability to Follow Directions:?Good Speech Pattern:?Clear, Perseverating and Soft-Spoken. Focused on foot pain, vision. Memory Description:?Grossly Intact Hallucinations:?None Delusions:?No evidence of paranoia noted today. Thought Process:?Linear Thought Content:?positive for Obsessional Thoughts, positive for Circumstantial, positive for Goal Oriented, positive for Perseveration. Denies SI, no safety concern. Depressive Symptoms:?Loss of Int. in Activity and Unhappiness Judgment:?Fair Patient Appearance: Well Grooomed and Appropriate Delusions: Paranoid Ideation Diagnostics Vital Signs (24Hr): BMI result Body Mass Index 20.9 Assessment & Plan Assessment & Plan (1) MDD (major depressive disorder), recurrent episode, moderate: Status: Acute Code(s): F33.1 - Major depressive disorder, recurrent, moderate Assessment and Plan: Patient continues with some depression and an anxiety, although symptoms appear to be slowly improving. Reviewed medications with her, she has had recent medication changes after seeing her outpatient provider. Chart updated. Discussed medications in detail, including intended purpose, dose ranges, risks and benefits of each. She continues to have some hesitancy regarding discussing level of anxiety and depression, although she did report that she is feeling anxious today, and that she is currently not suicidal. She reports that she has been pacing at home, and thus the medication changes. She was perseverative during encounter, with focus primarily on medication changes, and then her vision and her foot pain. She states that she is finding the structure of the PHP program to be beneficial, as she appreciates the social contact. She states that she has not been sharing a lot in the groups, but she finds being participant in them is helpful. Plan 1. Continue current medications as prescribed by outpatient psychiatric provider. 2. Continue with current [facility] plan of care. 3. Follow-up as per protocol. Patient educated on: diagnosis, medication risk/benefits and therapeutic strategies Informed Consent: understands Reason for contiued partial hosp. stay Substantial Risk for: harm to self, inability to function and med/psych decompensation Certification I certify that partial hospital treatment is medically necessary due to the symptoms and problems resulting from the patient's mental illness and the failure to treat the patient at the partial hospital level of care would likely result in the patient requiring inpatient psychiatric care which could not be prevented at a less intensive level of care. I spent ___20___ minutes with the patient and/or on the patient floor today, greater than?50% of which was spent counseling/coordinating care. Discharge Plan Discharge Attending provider: Milton Lofton Medications: Discontinued mirtazapine 15 mg Tablet 15 mg PO BEDTIME 30 Days Qty: 30 0RF No Action Restasis 0.05 % Dropperette 1 drp OPHTHALMIC (EYE) Q12H 0RF Rx Instructions: 1 drop both eyes losartan 50 mg Tablet 50 mg PO DAILY 30 Days Qty: 30 0RF Protocol: Hold for SBP< HOLD for SBP < : 90 trazodone 50 mg Tablet 50 mg PO BEDTIME PRN (Reason: Insomnia) 30 Days Qty: 30 0RF cholecalciferol (vitamin D3) 25 mcg (1,000 unit) Tablet 25 mcg PO DAILY 30 Days Qty: 30 0RF bupropion HCl 75 mg Tablet See Rx Instructions .ROUTE .COMPLEX 0RF Rx Instructions: Take 1/2 tab daily risperidone [Risperdal] 1 mg Tablet 1 mg PO BEDTIME 0RF Label Comments: Patient stated her prescriber Shayy Chappell's decreased the dose from 2 mg to 1 mg at HS. escitalopram oxalate [Lexapro] 10 mg Tablet 10 mg PO DAILY 0RF Rx Instructions: take 5mg for 5 days, then 10mg daily thereafter Stand Alone Forms: Patient Portal Discharge page Telehealth Telehealth Location of provider rendering services: practice address Location of patient: address on file Patient Identification confirmed using: Name, : Yes Telehealth method: video Patient verbally consented to treatment: Yes Patient verbally consented to billing insurance company: Yes Patient informed of any privacy concerns related to visit: Yes Time spent with patient (mins): 20
--- NOTE | 2021-05-02 16:12 | PC.NURSE ---
A family meeting was help with pt, her Jason, and me. Pt and her both expressed concern for what she might do with her time following discharge. They both described a sharp decline in her functioning in general over the past year, and said she spends hours pacing and worrying. Her said she has stopped cleaning to a large degree, and they both spoke about her severe reluctance to leave the house. They said she goes a couple yards and want to go back home. Pt attributed this to foot pain (her foot was injured), and said she cannot go on walks due to this. However, her reminded her that she is walking about the house (pacing) most of the time. Pt also reported fear of going to the senior center despite the fact that she used to attend regularly and participated in classes like chair yoga. She said I can't imagine doing that now , sharing about fear of falling or not being able to see well. We discussed the option to stay in [facility] a few more days, and to focus on ways to tackle daily structure in the face of anxiety (and paranoia perhaps). She has an appointment at [facility] in [place] on 05/06/21 for psychiatric testing and will not be in [facility] that day.
--- NOTE | 2021-05-09 12:30 | PM.EVENT ---
Event Note Date of Service: 05/09/21 Event Note: Did not attend scheduled appointment at 12:00pm today
--- NOTE | 2021-05-10 11:14 | P.PNPSP_ITS ---
Subjective Subjective Date of Service: 05/10/21 Reason For Visit: MDD Guardianship: No Medical Problems Affecting Mental Status: No Interim History: Describes mood as I'm okay, I'm pretty depressed I'd say . Denies any thought of harm to self or others, no SI, no safety concern. Reports poor sleep. Sees outpatient provider later today. Medication Compliance: Yes Side effects from medications: No Attending Groups: Yes Review of Systems Acute medical concerns: No Medical Review of Systems: unchanged Review of Systems Review of Systems Yes all other systems are reviewed and are negative Constitutional: Reports no additional constitutional complaints Mental Status Exam Mental Status Exam Narrative: Patient Appearance:?Well Groomed, dressed appropriately. Patient Orientation:?A&OX4. Level of Consciousness:?Awake, Appropriate and Alert Patient Behavior:?Cooperative, Suspicious Mood Description: pretty depressed . Affect Description:?Anxious and depressed, although improving Patient Cognition Impaired:?no Ability to Follow Directions:?Good Speech Pattern:?Clear, Perseverating and Soft-Spoken. Focused on medications. Memory Description:?Grossly Intact Hallucinations:?None reported, did not appear to be responding to any type of internal stimuli. Delusions:?No evidence of paranoia noted today. Thought Process:?Linear Thought Content:?positive for Obsessional Thoughts, positive for Circumstantial, positive for Goal Oriented, positive for Perseveration. Denies SI, no safety concern. Depressive Symptoms:?Loss of Int. in Activity and Unhappiness Judgment:?Fair Patient Appearance: Well Grooomed and Appropriate Delusions: Paranoid Ideation Diagnostics Vital Signs (24Hr): BMI result Body Mass Index 20.9 Assessment & Plan Assessment & Plan (1) MDD (major depressive disorder), recurrent episode, moderate: Status: Acute Code(s): F33.1 - Major depressive disorder, recurrent, moderate Assessment and Plan: Presents with depressed mood, anxious voice. Visit conducted over phone, due to patient difficulty with video appointment. She reports that she continues with poor sleep, depressed mood. She states she is not quite sure if her current medication regimen is working, says she may need medication adjustments with her outpatient provider. She sees her outpatient provider later today. Denies any thought of harm to self or others, no SI. No safety concerns at this time. She reports that she feels the PHP program was helpful to her, and she looks forward to discharge today. Plan 1. Patient appears stable for discharge from [facility] at this time. Denies SI, no safety concern. 2. Patient to follow-up with outpatient provider going forward. Patient educated on: diagnosis, medication risk/benefits and therapeutic strategies Informed Consent: understands Reason for contiued partial hosp. stay Substantial Risk for: stable for discharge Certification I certify that partial hospital treatment is medically necessary due to the symptoms and problems resulting from the patient's mental illness and the failure to treat the patient at the partial hospital level of care would likely result in the patient requiring inpatient psychiatric care which could not be prevented at a less intensive level of care. I spent minutes with the patient and/or on the patient floor today, greater than?50% of which was spent counseling/coordinating care. Discharge Plan Discharge Attending provider: Milton Lofton Medications: Discontinued mirtazapine 15 mg Tablet 15 mg PO BEDTIME 30 Days Qty: 30 0RF No Action Restasis 0.05 % Dropperette 1 drp OPHTHALMIC (EYE) Q12H 0RF Rx Instructions: 1 drop both eyes losartan 50 mg Tablet 50 mg PO DAILY 30 Days Qty: 30 0RF Protocol: Hold for SBP< HOLD for SBP < : 90 trazodone 50 mg Tablet 50 mg PO BEDTIME PRN (Reason: Insomnia) 30 Days Qty: 30 0RF cholecalciferol (vitamin D3) 25 mcg (1,000 unit) Tablet 25 mcg PO DAILY 30 Days Qty: 30 0RF bupropion HCl 75 mg Tablet See Rx Instructions .ROUTE .COMPLEX 0RF Rx Instructions: Take 1/2 tab daily risperidone [Risperdal] 1 mg Tablet 1 mg PO BEDTIME 0RF Label Comments: Patient stated her prescriber Shayy Chappell'yaneth decreased the dose from 2 mg to 1 mg at HS. escitalopram oxalate [Lexapro] 10 mg Tablet 10 mg PO DAILY 0RF Rx Instructions: take 5mg for 5 days, then 10mg daily thereafter benztropine [Cogentin] 0.5 mg Tablet 0.5 mg PO BID 0RF Stand Alone Forms: Patient Portal Discharge page Telehealth Telehealth Location of provider rendering services: practice address Location of patient: address on file Patient Identification confirmed using: Name, : Yes Telehealth method: voice only Patient verbally consented to treatment: Yes Patient verbally consented to billing insurance company: Yes Patient informed of any privacy concerns related to visit: Yes Time spent with patient (mins): 15
--- NOTE | 2021-05-10 12:10 | PC.NURSE ---
Patient scheduled to discharge from [facility] today. Reports feeling, a little anxious about discharge. Denied SI. Patient reports taking medications as prescribed. Stated she started new medication Cogentin which I confirmed with her pharmacy.
--- NOTE | 2021-05-10 14:23 | PC.NURSE ---
I called and left a message for Mario Anguiano [facility], pt's therapist. ([phone]) I informed him of pt's discharge today, and reported on her clinical status.
== END 2021-05-10 23:59 | disposition home or self-care (01) ==
LOC: HO.PHPA 10:45
PROVIDERS: Visit Provider Psychiatry & Neurology Psychiatry
DX: F33.1 Major depressive disorder, recurrent, moderate (principal); Z79.899 Other long term (current) drug therapy
CPT/HCPCS: 90791; 90853

== ENCOUNTER 2021-05-29 12:27 | Outpatient (REF) | payer MEDICARE, SELFPAY ==
[2021-05-29 14:00] LABS: T4 Thyroxine 12.1 ug/dL (4.5-12.0); Thyroid Stimulating Hormone 1.21 uIU/mL (0.32-4.0)
[2021-05-29 18:51] LABS: Erythrocyte Sedimentation Rate 9 MM/HR (0-20)
[2021-06-04 23:32] LABS: Acetylcholine Receptor Binding <0.30 nmol/L
[2021-06-08 22:37] LABS: Acetylcholine Recep Modulating 11
== END 2021-05-29 12:28 | disposition home or self-care (01) ==
LOC: HO.LAB 12:27
PROVIDERS: PCP Internal Medicine; Visit Provider Psychiatry & Neurology Neurology
DX: H53.2 Diplopia (principal)
CPT/HCPCS: 36415; 82550; 83519; 84436; 84443; 85652

== ENCOUNTER 2021-06-27 07:23 | Day surgery (SDC) | payer MEDICARE, SELFPAY ==
[2021-06-27] VITALS (12 sets, daily range): BP systolic 113–149; BP diastolic 54–67; PULSE 60–76; RESP 16–22; TEMP 36.1–37.6; O2SAT 95–100; BMI 20.1
--- NOTE | ~2021-06-27 | MR_ITS ---
EXAMINATION: MR BRAIN WITHOUT CONTRAST CLINICAL INFORMATION: 76-year-old with diplopia. Evaluate for possible brainstem lesion. COMPARISON: None TECHNIQUE: Multiplanar, multisequence MR imaging of the brain was done without IV contrast. Study is limited due to excessive gross patient motion artifact on multiple sequences. FINDINGS: Mild nonspecific generalized diffuse brain parenchymal volume loss is noted. Cerebellar tonsils are normally positioned. DWI sequence demonstrates no restricted diffusion. Specifically, there is no evidence for acute or subacute cerebral ischemia. There are scattered tiny foci of FLAIR/T2 signal hyperintensity within the white matter of both cerebral hemispheres which are nonspecific findings but likely reflect tiny zones of chronic ischemic microangiopathy. There is a focal confluent zone of T2 hyperintensity in the deep left periventricular white matter adjacent to the frontal horn and anterior body of the left lateral ventricle, surrounding a curvilinear focus of cavitation on the T1-weighted images at this location consistent with a remote deep periventricular white matter infarct. No definite brainstem lesions are seen within the limitations of the exam. Gradient refocused imaging demonstrates no evidence for hemorrhage, hemosiderin staining or abnormal mineral deposition. No extra-axial fluid collections, space-occupying process or mass effect are identified. Mildly prominent perivascular spaces are noted in the parietal white matter and basal ganglia. The ventricular system and subarachnoid spaces are consistent with mild generalized volume loss without hydrocephalus. Normal signal voids are seen in the visualized major intracranial vessels. Mild mucosal thickening noted in the ethmoid complex. Right-sided lens extraction noted. There is a 1.3 cm nodular T1 hypointensity/T2 hyperintensity seen along the posterior occiput arising from the dermis slightly to the left of midline. Correlate with direct visualization. MR/MR head/brain wo con IMPRESSION: 1. 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 2. No acute intracranial process. No evidence for hemorrhage, subacute or acute infarct, extra-axial fluid collection, space-occupying process, mass effect or hydrocephalus. No brainstem lesions are identified. 3. Mucosal thickening in the ethmoid complex. 4. Pedunculated nodule arising from the skin along the posterior occiput to the left of midline. Correlate with direct visualization.
[2021-06-27 08:07] LABS: MANUAL DIFF FLAG NO
[2021-06-27 08:10] LABS: Basophils Percent Auto 0.5 % (0-2); Eosinophils Absolute Auto 0.1 X10*3/uL (0.0-0.4); Eosinophils Percent Auto 2.6 % (0-4); Hematocrit 34.6 % (37.0-47.0); Hemoglobin 11.4 g/dl (12.0-16.0); Imm Gran Abs Auto 0.02 X10*3/uL (0.00-0.03); Imm Gran Pct Auto 0.5 % (0.0-0.4); Lymphocytes Absolute Auto 0.7 X10*3/uL (1.2-4.9); Lymphocytes Percent Auto 16.7 % (20-40); Mean Corpuscular HGB Conc 32.9 g/dl (31.0-35.0); Mean Corpuscular Hemoglobin 31.8 pg (27.0-33.0); Mean Corpuscular Volume 96.6 fL (80.0-98.0); Mean Platelet Volume 11.4 fL (9.4-12.3); Monocytes Absolute Auto 0.3 X10*3/uL (0.1-1.2); Monocytes Percent Auto 7.4 % (2-11); Neutrophils Percent Auto 72.3 % (45-73); Platelet Count 215 X10*3/uL (160-400); Red Blood Count 3.58 X10*6/uL (4.20-5.50); Red Cell Distribution Width 12.7 % (11.0-16.0); White Blood Count 4.2 X10*3/uL (4.8-10.8)
--- NOTE | 2021-06-27 08:44 | P.CONAN_ITS ---
HPI - Anesthesia Eval Consult details Narrative: 76 F for brain MRI We had a long discussion with patient's PCP . We also discussed the case with patient and her . Anesthesiology team will be on standby . [facility] Active Problems Active Problems: All Active Problems (Updated 04/25/21 @ 09:56 by Angela Ly RN) MDD (major depressive disorder), recurrent episode, moderate (Acute) Benign essential HTN (Acute) Past Medical History Medical History (Updated 04/25/21 @ 09:56 by Angela Ly RN) Essential (primary) hypertension Hallux valgus (acquired) Vitamin D deficiency Family History Family history of problems with anesthesia: No Surgical History History of Problems with Anesthesia: No Social History Social History Household Members: Spouse Household Members Other:: N/A Housing: House Do you presently have visiting nurse or other home services: No Patient Tobacco Use Status: Never used Tobacco Advance Directives: No Advance Directives Information Provided: Yes service: No Sexual orientation: Straight/Heterosexual Meds Allergies Allergy/AdvReac Type Severity Reaction Status Date / Time pneumococcal vaccine Allergy Redness of Verified 03/26/21 04:50 Skin Home Medications Medication Instructions Recorded Confirmed Last Taken Type cyclosporine 0.05 % eye drops in a 1 drp OPHTHALMIC (EYE) Q12H 03/25/21 04/17/21 Unknown History dropperette (Restasis) bupropion HCl 75 mg tablet See Rx Instructions .ROUTE .COMPLEX 04/17/21 04/17/21 04/17/21 08:00 History risperidone 1 mg tablet (Risperdal) 1 mg PO BEDTIME 04/17/21 04/17/21 Unknown History escitalopram oxalate 10 mg tablet 10 mg PO DAILY 05/02/21 05/02/21 Unknown History (Lexapro) benztropine 0.5 mg tablet 0.5 mg PO BID 05/10/21 05/10/21 Unknown History Exam Exam Date and Time: June 27, 2021 0844 Height,Weight and Vital Signs: Height 5 ft 6 in Weight 56.699 kg Last Vital Signs Temp 97 F 06/27/21 07:34 Pulse 76 06/27/21 07:34 Resp 18 06/27/21 07:34 BP 149/65 H 06/27/21 07:34 Pulse Ox 98 06/27/21 07:34 Pertinent Lab Results Pertinent Lab Results: Laboratory Tests 06/27/21 08:03 WBC 4.2 L RBC 3.58 L Hgb 11.4 L Hct 34.6 L MCV 96.6 MCH 31.8 MCHC 32.9 RDW 12.7 Plt Count 215 MPV 11.4 Immature Gran % (Auto) 0.5 H Neut % (Auto) 72.3 Lymph % (Auto) 16.7 L [place] % (Auto) 7.4 Eos % (Auto) 2.6 Baso % (Auto) 0.5 Lymph # (Auto) 0.7 L [place] # (Auto) 0.3 Eos # (Auto) 0.1 Baso # (Auto) 0.0 Abs Immat Gran (auto) 0.02 Absolute Neuts (auto) 3.0 Absolute Nucleated RBC 0.000 Nucleated RBC % (auto) 0.0 Airway Mallampati Class: III TM Dist: >3cm Loose/Missing/Broken Teeth: Yes (Poor dentition with multiple chipped and worn down. ) Heart: S1, S2 Lungs: b/l breath sounds Assessment and Plan Assessment Anesthesia Assessment: Anesthesia Plan Discussed Final Anesthetic Review Family History of Problems with Anesthesia: No History of Problems with Anesthesia: No NPO: Yes ASA Class: III Final Preanesthetic Review: Meds/Allgs Chart Reviewed, Consent Obtained/Reviewed and Anes Risks/Benef Reviewed Patient Risk: High Procedure Risk: Intermediate Anesthetic Plan Anesthetic Plan: Other (standby ) Disposition: Standard PACU
== END 2021-06-27 14:31 | disposition home or self-care (01) ==
LOC: HO.SSS 07:23
PROVIDERS: Radiology Diagnostic Radiology; PCP Internal Medicine; Visit Provider Psychiatry & Neurology Neurology
DX: H53.2 Diplopia (principal); I10 Essential (primary) hypertension; G25.71 Drug induced akathisia; G47.00 Insomnia, unspecified; F33.1 Major depressive disorder, recurrent, moderate; Z79.899 Other long term (current) drug therapy
CPT/HCPCS: 36415; 70551; 85025; J0461; J2060; J2250